=== PATIENT | female | born 1990 ===

== ENCOUNTER 2018-06-05 08:29 | Inpatient (IN) | payer OTHER ==
--- NOTE | 2018-06-05 08:52 | ED PDOC ---
Arrival/HPI - General Chief Complaint: Abdominal Pain Time Seen by Provider: 06/05/18 08:49 Historian: Patient - History of Present Illness Narrative History of Present Illness (Text): 06/05/18 08:5 27 year old female, whose PMH includes diverticulitis, who presents to the emergency department complaining of suprapubic abdominal pain described as cramping, since 3 days that has become worse. Patient associates this pain with nausea and states it is similar to her PMH symptoms of diverticulitis. Patient notes having controlled menstrual cycle, and usually gets spotting. Patient denies any vomiting, diarrhea, chest pain, shortness of breath, fever, vaginal discharge or bleeding, dysuria, hematuria, or other complaints. Time/Duration: < week Symptom Onset: Sudden Symptom Course: Worsening Quality: Cramping Context: Home Past Medical History - Provider Review Nursing Documentation Reviewed: Yes - Infectious Disease Hx of Infectious Diseases: None - Cardiac Hx Cardiac Disorders: No - Pulmonary Hx Respiratory Disorders: No - Neurological Hx Neurological Disorder: No - HEENT Hx HEENT Disorder: No - Renal Hx Renal Disorder: No - Endocrine/Metabolic Hx Endocrine Disorders: No - Hematological/Oncological Hx Blood Disorders: No - Integumentary Hx Dermatological Disorder: No - Musculoskeletal/Rheumatological Hx Musculoskeletal Disorders: No - Gastrointestinal Hx Diverticulitis: Yes - Genitourinary/Gynecological Hx Genitourinary Disorders: No - Psychiatric Hx Psychophysiologic Disorder: No Hx Substance Use: No - Surgical History Other/Comment: b/l lower leg fasciotomy Family/Social History - Physician Review Nursing Documentation Reviewed: Yes Family/Social History: No Known Family HX Smoking Status: Never Smoked Hx Alcohol Use: Yes Frequency of alcohol use: Socially Hx Substance Use: No Allergies/Home Meds Allergies/Adverse Reactions: Allergies No Known Allergies Allergy (Verified 06/05/18 08:42) Home Medications: Home Meds Medication Instructions Recorded Confirmed Etonogestrel [Nexplanon] 68 mg SUBD 06/05/18 Review of Systems - Physician Review All systems were reviewed & negative as marked: Yes - Review of Systems Constitutional: absent: Fevers Gastrointestinal: Abdominal Pain (suprapubic pain ), Nausea. absent: Diarrhea, Vomiting Genitourinary Female: absent: Vaginal Bleeding Physical Exam - Physical Exam Narrative Physical Exam (Text): 06/05/18 Constitutional: No acute distress. Head: Normocephalic. Atraumatic. Eyes: PERRL. ENT: Moist mucous membranes. Neck: Supple. Cardiovascular: Regular rate. Chest: No tenderness. Respiratory: Clear to auscultation bilaterally. GI: (+) suprapubic lower left quadrant tenderness. No rebound or guarding. Nondistended. Back: No CVA tenderness. Musculoskeletal: No tenderness or swelling of extremities. Skin: No rash. Neurologic: Alert, no focal deficit. Vital Signs Reviewed: Yes Vital Signs Temp Pulse Resp BP Pulse Ox 06/05/18 13:08 80 18 104/70 99 06/05/18 11:00 98.8 F 84 18 106/63 98 06/05/18 08:32 98.2 F 88 16 121/81 96 Temperature: Afebrile Blood Pressure: Normal Pulse: Regular Respiratory Rate: Normal Appearance: Positive for: Well-Appearing, Non-Toxic, Comfortable Pain Distress: None Mental Status: Positive for: Alert and Oriented X 3 - Systems Exam Skin: No: Rashes Medical Decision Making ED Course and Treatment: 06/05/18 Impression: 27 year old female with suprapubic lower left quadrant tenderness complaining of suprapubic abdominal cramping since 3 days. Plan: -- CT abdomen and pelvis -- Labs -- Zofran and Sodium Chloride -- Urinalysis -- Reassess and disposition Progress Notes: 06/05/18 11:48 CT abdomen and pelvis: Creator : Javier Horner MD FINDINGS: LOWER THORAX: Unremarkable. LIVER: Unremarkable. No gross lesion or ductal dilatation. GALLBLADDER AND BILE DUCTS: Unremarkable. PANCREAS: Unremarkable. No gross lesion or ductal dilatation. SPLEEN: Unremarkable. ADRENALS: Unremarkable. No mass. KIDNEYS AND URETERS: Unremarkable. No hydronephrosis. No solid mass. VASCULATURE: Unremarkable. No aortic aneurysm. BOWEL: There is diverticulitis involving the splenic flexure. Inflammatory changes are seen in the fat planes. There is a small pocket of extraluminal gas. There is diverticulosis with mural thickening in the descending and sigmoid colon. APPENDIX: Normal appendix. PERITONEUM: Unremarkable. No free fluid. No free air. LYMPH NODES: Unremarkable. No enlarged lymph nodes. BLADDER: Unremarkable. REPRODUCTIVE: Unremarkable. BONES: No acute fracture. OTHER FINDINGS: None. IMPRESSION: There is diverticulitis involving the splenic flexure. Inflammatory changes are seen in the fat planes. There is a small pocket of extraluminal gas. There is diverticulosis with mural thickening in the descending and sigmoid colon. Antibiotics initiated. Dr. Hardin accepts patient to hospitalist service. Abdomen remains soft without guarding or rebound. - Lab Interpretations Lab Results: 06/05/18 09:05 06/05/18 09:05 Lab Results 06/05/18 09:05: Sodium 139, Potassium 4.1, Chloride 103, Carbon Dioxide 26, Anion Gap 14, BUN 12, Creatinine 0.7, Est GFR ( Amer) > 60, Est GFR (Non- Af Amer) > 60, Random Glucose 100, Calcium 8.7, Total Bilirubin 1.3, AST 25, ALT 36, Alkaline Phosphatase 58, Total Protein 7.5, Albumin 4.4, Globulin 3.1, Albumin/Globulin Ratio 1.4, Lipase 45 06/05/18 09:05: WBC 11.8 H, RBC 4.19, Hgb 13.8, Hct 39.8, MCV 95.0, MCH 32.9, MCHC 34.7, RDW 12.4, Plt Count 204, MPV 10.2, Gran % 76.9 H, Lymph % (Auto) 14.4 L, [place] % (Auto) 7.9 H, Eos % (Auto) 0.6 L, Baso % (Auto) 0.2, Gran # 9.06 H, Lymph # (Auto) 1.7, [place] # (Auto) 0.9 H, Eos # (Auto) 0.1, Baso # (Auto) 0.02 06/05/18 09:04: Urine Color Yellow, Urine Appearance Clear, Urine pH 6.0, Ur Specific [place] 1.025, Urine Protein Trace H, Urine Glucose (UA) Negative, Urine Ketones Negative, Urine Blood Negative, Urine Nitrate Negative, Urine Bilirubin Negative, Urine Urobilinogen 0.2, Ur Leukocyte Esterase Negative, Urine RBC 0 - 2, Urine WBC 1 - 3, Ur Epithelial Cells 6 - 8, Urine Bacteria Many , Urine Other Uyeast, Urine HCG, Qual Negative I have reviewed the lab results: Yes - RAD Interpretation Radiology Orders: 06/05/18 09:17 ABD PELVIS PO & IV CONTRAST [CT] Stat Transportation Refrigeration Technician: Radiologist - Medication Orders Current Medication Orders: Sodium Chloride (Sodium Chloride 0.9%) 100 mls @ 150 mls/hr IV .Q40M JUVE Piperacillin Sod/Tazobactam Sod (Zosyn 3.375 In Ns 100ml) 100 mls @ 200 mls/hr IVPB Q6 JUVE PRN Reason: Protocol Stop: 06/06/18 00:29 Morphine Sulfate (Morphine) 1 mg IVP Q6 PRN PRN Reason: Pain, moderate (4-7) Ondansetron HCl (Zofran Inj) 4 mg IVP Q6H PRN PRN Reason: Nausea/Vomiting Pantoprazole Sodium (Protonix Ec Tab) 40 mg PO 0600 JUVE Discontinued Medications Sodium Chloride (Sodium Chloride 0.9%) 1,000 mls @ 999 mls/hr IV .Q1H1M STA Stop: 06/05/18 10:17 Last Admin: 06/05/18 09:22 Dose: 999 mls/hr eMAR Start Stop Document 06/05/18 09:22 LM (Rec: 06/05/18 09:22 LM [id number]) Intravenous Solution Start Date 06/05/18 Start Time 09:22 End Date 06/05/18 End time 10:23 Total Infusion Time 61 Ciprofloxacin (Cipro 400mg/200ml Dsw) 400 mg in 200 mls @ 133.3 mls/hr IVPB STAT STA PRN Reason: Protocol Stop: 06/05/18 13:19 Metronidazole (Flagyl) 500 mg in 100 mls @ 100 mls/hr IVPB STAT STA PRN Reason: Protocol Stop: 06/05/18 12:48 Last Admin: 06/05/18 12:18 Dose: 100 mls/hr eMAR Start Stop Document 06/05/18 12:18 [facility] (Rec: 06/05/18 12:18 LM [id number]) Intravenous Solution Start Date 06/05/18 Start Time 12:18 End Date 06/05/18 End time 13:20 Total Infusion Time 62 Morphine Sulfate (Morphine) 1 mg IVP PRN PRN PRN Reason: Pain, moderate (4-7) Ondansetron HCl (Zofran Inj) 8 mg IVP STAT STA Stop: 06/05/18 09:18 Last Admin: 06/05/18 09:23 Dose: 8 mg IVP Administration Document 06/05/18 09:23 LM (Rec: 06/05/18 09:23 [facility] [id number]) Charges for Administration # of IVP Administrations 1 Pneumococcal Polyvalent Vaccine (Pneumovax 23 Vaccine) 0.5 ml IM .ONCE ONE Stop: 06/05/18 15:34 - Scribe Statement The provider has reviewed the documentation as recorded by the Scribe Maricruz Garay Provider Scribe Attestation: All medical record entries made by the Scribe were at my direction and personally dictated by me. I have reviewed the chart and agree that the record accurately reflects my personal performance of the history, physical exam, medical decision making, and the department course for this patient. I have also personally directed, reviewed, and agree with the discharge instructions and disposition. Disposition/Present on Arrival - Present on Arrival Any Indicators Present on Arrival: No History of DVT/PE: No History of Uncontrolled Diabetes: No Urinary Catheter: No History of Decub. Ulcer: No History Surgical Site Infection Following: None - Disposition Have Diagnosis and Disposition been Completed?: Yes Diagnosis: Acute diverticulitis Disposition: HOME/ ROUTINE Disposition Time: 11:50 Patient Plan: Discharge Condition: STABLE
[2018-06-05 09:10] LABS: BASO # 0.02 K/mm3 (0.0-2.0); BASO % 0.2 % (0.0-3.0); EOS # 0.1 (0.0-0.7); EOS % 0.6 % (1.5-5.0); GRAN # 9.06 (1.4-6.5); GRAN % 76.9 % (50.0-68.0); HEMOGLOBIN 13.8 g/dL (12.0-16.0); LYMPH # 1.7 (1.2-3.4); LYMPH % 14.4 % (22.0-35.0); MEAN CORPUSCULAR HEMOGLOBIN 32.9 pg (25.0-35.0); MEAN CORPUSCULAR HGB CONC 34.7 g/dl (31.0-37.0); MEAN PLATELET VOLUME 10.2 fl (7.0-11.0); MONO # 0.9 (0.1-0.6); MONO % 7.9 % (1.0-6.0); RBC 4.19 10^6/uL (3.5-6.1); RED CELL DISTRIBUTION WIDTH 12.4 % (11.5-14.5); WHITE BLOOD COUNT 11.8 10^3/ul (4.5-11.0)
[2018-06-05 09:10] LABS: URINE BILIRUBIN NEGATIVE (NEGATIVE); URINE BLOOD NEGATIVE (NEGATIVE); URINE GLUCOSE (UA) NEGATIVE (NEGATIVE); URINE LEUKOCYTE ESTERASE NEGATIVE Leu/uL (NEGATIVE); URINE PROTEIN TRACE mg/dL (<30 mg/dL); URINE UROBILINOGEN 0.2 E.U./dL (<1 E.U./dL)
[2018-06-05 09:11] LABS: URINE APPEARANCE CLEAR (CLEAR); URINE COLOR YELLOW (YELLOW)
[2018-06-05 09:15] LABS: HCG,QUALITATIVE URINE NEGATIVE (NEGATIVE)
[2018-06-05] MEDS ORDERED: Sodium Chloride 0.9% 1,000 ML IV STA (09:17)
[2018-06-05 09:20] LABS: URINE BACTERIA MANY (NEG); URINE RBC 0 - 2 /hpf (0-2)
[2018-06-05 09:20] LABS: ALB/GLOB RATIO 1.4 (1.1-1.8); ALBUMIN 4.4 g/dL (3.0-4.8); ALT/SGPT 36 U/L (7-56); AST/SGOT 25 U/L (14-36); BLOOD UREA NITROGEN 12 mg/dL (7-21); CALCIUM 8.7 mg/dL (8.4-10.5); GFR AFRICAN-AMERICAN > 60; GFR NON-AFRICAN AMERICAN > 60; LIPASE 45 U/L (23-300)
[2018-06-05] MEDS ORDERED: Iohexol 240 (50 ml) ONE (09:24)
[2018-06-05] MEDS ORDERED: Iohexol 350 MG/100 ML VIAL ONE (10:43)
--- NOTE | 2018-06-05 11:46 | CT ---
Date of service: 06/05/2018 PROCEDURE: CT Abdomen and Pelvis with contrast HISTORY: LLQ pain COMPARISON: None. TECHNIQUE: Contrast dose: 100 cc of Omni 350 Radiation dose: Total exam DLP = 1053 mGy-cm. This CT exam was performed using one or more of the following dose reduction techniques: Automated exposure control, adjustment of the mA and/or kV according to patient size, and/or use of iterative reconstruction technique. FINDINGS: LOWER THORAX: Unremarkable. LIVER: Unremarkable. No gross lesion or ductal dilatation. GALLBLADDER AND BILE DUCTS: Unremarkable. PANCREAS: Unremarkable. No gross lesion or ductal dilatation. SPLEEN: Unremarkable. ADRENALS: Unremarkable. No mass. KIDNEYS AND URETERS: Unremarkable. No hydronephrosis. No solid mass. VASCULATURE: Unremarkable. No aortic aneurysm. BOWEL: There is diverticulitis involving the splenic flexure. Inflammatory changes are seen in the fat planes. There is a small pocket of extraluminal gas. There is diverticulosis with mural thickening in the descending and sigmoid colon. APPENDIX: Normal appendix. PERITONEUM: Unremarkable. No free fluid. No free air. LYMPH NODES: Unremarkable. No enlarged lymph nodes. BLADDER: Unremarkable. REPRODUCTIVE: Unremarkable. BONES: No acute fracture. OTHER FINDINGS: None. IMPRESSION: There is diverticulitis involving the splenic flexure. Inflammatory changes are seen in the fat planes. There is a small pocket of extraluminal gas. There is diverticulosis with mural thickening in the descending and sigmoid colon.
[2018-06-05] MEDS ORDERED: Ciprofloxacin 400mg/200ml D5W 400 MG/200 ML BAG IVPB STA (11:49)
[2018-06-05] MEDS ORDERED: metroNIDAZOLE IV 500 mg/100 ml 500 MG/100 ML BAG IVPB STA (11:49)
[2018-06-05] MEDS ORDERED: Morphine 2 mg/ml ISec IVP PRN (13:43)
[2018-06-05] MEDS ORDERED: Sodium Chloride 0.9% 100 ML IV SCH (14:00)
--- NOTE | 2018-06-05 14:28 | CP.PCM.HP ---
Addendum entered and electronically signed by Bro Salinas DO 06/06/18 08:47: HPI: Patient was adopted at so family history was unobtainable. Original Note: <Bro Salinas - Last Filed: 06/05/18 14:35> History of Present Illness - History of Present Illness History of Present Illness: Bro Salinas, PGY-1 History and Physical for Hospitalist Service CC: Abdominal Pain HPI: Ms. Porter is a 27 year old F with a PMHx of diverticulitis who presented with abdominal pain for three days. Patient describes the pain as a 5/10, constant dull pain with intermittent sharp stabbing pains. Patient points to her stomach and left lower abdomen. Patient relates a history of diverticulitis first diagnosed in February of 2013 at [facility] in [facility]. CT at that time showed colonic diverticulosis most severely affecting the sigmoid and descending colon and acute diverticulitis without abscess formation. Follow up colonoscopy showed mild diverticulosis in the sigmoid, transverse and cecum. Patient also admits to two occasions of nonbloody diarrhea today and mild nausea. Patient denies CP, SOB, palpitations, change in frequency or dysuria, fevers, chills, weight loss. PMHx: Diverticulitis PSHx: bilateral lower leg fasciotomy Allergies: NKDA Social: denies tobacco and IVDU, currently without insurance Meds: Probiotic and Metamucil Pharm: none PMD: Dr. Garcia ([facility]) in the past CT Abd 06/05: Diverticulitis in splenic flexure with small extraluminal gas. Diverticulosis with mural thickening in descending and sigmoid colon Present on Admission - Present on Admission Any Indicators Present on Admission: No History of DVT/PE: No Review of Systems - Review of Systems All systems: reviewed and no additional remarkable complaints except (as listed in HPI.) Review of Systems: 12 point review of systems completed and negative except as described in HPI. Past Patient History - Infectious Disease Hx of Infectious Diseases: None - Past Social History Smoking Status: Never Smoked - CARDIAC Hx Cardiac Disorders: No - PULMONARY Hx Respiratory Disorders: No - NEUROLOGICAL Hx Neurological Disorder: No - HEENT Hx HEENT Problems: No - RENAL Hx Chronic Kidney Disease: No - ENDOCRINE/METABOLIC Hx Endocrine Disorders: No - HEMATOLOGICAL/ONCOLOGICAL Hx Blood Disorders: No - INTEGUMENTARY Hx Dermatological Problems: No - MUSCULOSKELETAL/RHEUMATOLOGICAL Hx Musculoskeletal Disorders: No - GASTROINTESTINAL Hx Diverticulitis: Yes - GENITOURINARY/GYNECOLOGICAL Hx Genitourinary Disorders: No - PSYCHIATRIC Hx Psychophysiologic Disorder: No Hx Substance Use: No - SURGICAL HISTORY Other/Comment: b/l lower leg fasciotomy Meds Allergies/Adverse Reactions: Allergies Allergy/AdvReac Type Severity Reaction Status Date / Time No Known Allergies Allergy Verified 06/05/18 08:42 Physical Exam - Constitutional Appears: Well, No Acute Distress - Head Exam Head Exam: ATRAUMATIC, NORMAL INSPECTION, NORMOCEPHALIC - Eye Exam Eye Exam: EOMI, Normal appearance, PERRL Pupil Exam: NORMAL ACCOMODATION - ENT Exam ENT Exam: Mucous Membranes Moist, Normal Exam - Neck Exam Neck exam: Positive for: Normal Inspection. Negative for: Lymphadenopathy, Tenderness - Respiratory Exam Respiratory Exam: Clear to Auscultation Bilateral, NORMAL BREATHING PATTERN. absent: Chest Wall Tenderness, Wheezes, Respiratory Distress - Cardiovascular Exam Cardiovascular Exam: RRR, +S1, +S2 - GI/Abdominal Exam GI & Abdominal Exam: Soft, Tenderness. absent: Distended, Guarding, Mass, Pulsatile Mass, Rebound - Neurological Exam Neurological exam: Alert, CN II-XII Intact, Oriented x3 - Psychiatric Exam Psychiatric exam: Normal Affect, Normal Mood - Skin Skin Exam: Dry, Intact, Normal Color, Warm Results - Vital Signs Recent Vital Signs: Last Vital Signs Temp 98.6 F 06/05/18 13:18 Pulse 80 06/05/18 13:18 Resp 18 06/05/18 13:18 BP 104/70 06/05/18 13:18 Pulse Ox 98 06/05/18 13:18 - Labs Result Diagrams: 06/05/18 09:05 06/05/18 09:05 Assessment & Plan - Assessment and Plan (Free Text) Assessment: Ms. Porter is a 27 year old F with a PMHx of acute diverticulitis who presents with abdominal pain likely 2/2 recurrent diverticulitis. Recurrent Diverticulitis - Afebrile, mild leukocytosis (11.8) - CT from 5 years ago showed diverticulitis of mid descending colon without evidence of abscess formation - CT today showed diverticulitis in splenic flexure with small pocket of extraluminal gas. - GI consulted regarding recurrence. Appreciate recommendations - Surgery consulted regarding extraluminal gas evaluation. Appreciate recommendations - NPO and on IVF NS @150 cc/hr - Received Metro 500 mg and Cipro 400 mg in ED. Currently on Metronidazole 500 mg q8 and Rocephin 1 gm daily - UA negative for ascending infection - Zofran 4 mg IVP q6 PRN for nausea - test negative Pain Control - Morphine 1 mg IVP q[address] GI/DVT PPx Protonix 40 SCD's- will reevaluate once surgery provides recommendations Patient seen, case reviewed, and plan agreed upon with Dr. Cathi De La Cruz. Bro Bernardopaulette PGY-1 <Susan De La Cruz - Last Filed: 06/05/18 17:55> Results - Vital Signs Recent Vital Signs: Last Vital Signs Temp 98.8 F 06/05/18 15:13 Pulse 80 06/05/18 15:13 Resp 18 06/05/18 15:13 BP 104/70 06/05/18 15:13 Pulse Ox 98 06/05/18 13:18 - Labs Result Diagrams: 06/05/18 09:05 06/05/18 09:05 Attending/Attestation - Attestation I have personally seen and examined this patient.: Yes I have fully participated in the care of the patient.: Yes I have reviewed all pertinent clinical information: Yes Notes (Text): 06/05/18 17:43 27 year old female with past medical history of diverticulitis who presents with complaint of abdominal pain. CT abd/pelvis was done which showed diverticulitis in splenic flexure with small pocket of extraluminal gas. Mild leukocytosis 11.8. Continue with NPO, iv fluids, analgesics and antibiotics. Serial abdominal exams. Surgery and GI evaluation is requested. Susan De La Cruz MD Hospitalist.
--- NOTE | 2018-06-05 15:09 | CP.PCM.CON ---
History of Present Illness - History of Present Illness History of Present Illness: GENERAL SURGERY CONSULT NOTE FOR DR. FALCON 27 y/o F with pmhx of previous diverticulosis admitted to hospital for abdominal pain. She has been experiencing the pain for the past three days that had started in her suprapubic region and has moved to her left lower quadrant that she describes as "coming in waves" that was initially a 9/10 severity that was relieved with pain medication. She had initially thought she was having menstrual cramps but decided to come to ER after pain hadn't subsided. She had previously had a similar episode of abdominal pain about 5 years ago when she was diagnosed with diverticulitis at [place] in [facility]. Per patient, folow up colonoscopy only showed diverticulosis. She has been taking metamucil and probiotic since her last colonoscopy. She reports having a bowel movement today with nonbloody diarrhea. She complains of some nausea but denies fevers, chills , hematochezia, diarrhea, chest pain, shortness of breath or flank pain. surghx: b/l lower leg fasciotomy, nexplanon placement pmhx: diverticulitis, diverticulosis, ~10 yrs ago famhx: adopted-no family history all: NKDA social: marijuana ~3x/week, no smoking, social drinker Review of Systems - Review of Systems All systems: reviewed and no additional remarkable complaints except (as per HPI ) Past Patient History - Infectious Disease Hx of Infectious Diseases: None - Past Medical History & Family History Past Medical History?: No Pertinent Family History: Pt adopted. Unable to obtain - Past Social History Smoking Status: Never Smoked Alcohol: Social Drugs: Cannabis (smokes 3x/week) - CARDIAC Hx Cardiac Disorders: No - PULMONARY Hx Respiratory Disorders: No - NEUROLOGICAL Hx Neurological Disorder: No - HEENT Hx HEENT Problems: No - RENAL Hx Chronic Kidney Disease: No - ENDOCRINE/METABOLIC Hx Endocrine Disorders: No - HEMATOLOGICAL/ONCOLOGICAL Hx Blood Disorders: No - INTEGUMENTARY Hx Dermatological Problems: No - MUSCULOSKELETAL/RHEUMATOLOGICAL Hx Musculoskeletal Disorders: No - GASTROINTESTINAL Hx Diverticulitis: Yes - GENITOURINARY/GYNECOLOGICAL Hx Genitourinary Disorders: No - PSYCHIATRIC Hx Psychophysiologic Disorder: No Hx Substance Use: No - SURGICAL HISTORY Other/Comment: b/l lower leg fasciotomy Meds Allergies/Adverse Reactions: Allergies Allergy/AdvReac Type Severity Reaction Status Date / Time No Known Allergies Allergy Verified 06/05/18 08:42 - Medications Medications: Current Medications Metronidazole (Flagyl) 500 mg in 100 mls @ 100 mls/hr IVPB Q8 [facility] PRN Reason: Protocol Ceftriaxone Sodium (Rocephin 1 Gram Ivpb) 1 gm in 100 mls @ 100 mls/hr IVPB DAILY [facility] PRN Reason: Protocol Sodium Chloride (Sodium Chloride 0.9%) 100 mls @ 150 mls/hr IV .Q40M [facility] Morphine Sulfate (Morphine) 1 mg IVP Q6 PRN PRN Reason: Pain, moderate (4-7) Ondansetron HCl (Zofran Inj) 4 mg IVP Q6H PRN PRN Reason: Nausea/Vomiting Pantoprazole Sodium (Protonix Ec Tab) 40 mg PO 0600 [facility] Physical Exam - Constitutional Appears: Well, Non-toxic, No Acute Distress - Head Exam Head Exam: NORMAL INSPECTION - Eye Exam Eye Exam: Normal appearance - Respiratory Exam Respiratory Exam: NORMAL BREATHING PATTERN - Cardiovascular Exam Cardiovascular Exam: REGULAR RHYTHM - GI/Abdominal Exam GI & Abdominal Exam: Hypoactive Bowel Sounds, Soft, Tenderness (moderate pain to palpation of suprapubic and b/l lower quadrants. Mild pain to palpation LUQ) . absent: Distended, Guarding, Rebound, Rigid - Rectal Exam Rectal Exam: NORMAL INSPECTION. absent: Bloody Stool Additional comments: Sphincter tone intact. no masses palpated - Extremities Exam Extremities exam: Positive for: pedal pulses present. Negative for: calf tenderness, pedal edema - Back Exam Back exam: absent: CVA tenderness (L), CVA tenderness (R) - Neurological Exam Neurological exam: Alert, Oriented x3 - Psychiatric Exam Psychiatric exam: Normal Affect, Normal Mood - Skin Skin Exam: Dry, Intact, Normal Color, Warm Results - Vital Signs Recent Vital Signs: Last Vital Signs Temp 98.6 F 06/05/18 13:18 Pulse 80 06/05/18 13:18 Resp 18 06/05/18 13:18 BP 104/70 06/05/18 13:18 Pulse Ox 98 06/05/18 13:18 - Labs Result Diagrams: 06/05/18 09:05 06/05/18 09:05 Assessment & Plan - Assessment and Plan (Free Text) Assessment: 27 y/o F with recurrent diverticulitis involving splenic flexure with microperforation Plan: - No emergent surgical intervention at this time - Will continue to follow pt during hospital course - PT NPO, daily serial abdominal exams - f/u GI recs - monitor cbc/bmp - Continue abx per ID recs - Continue IV fluids - Continue incentive spirometry - Encourage ambulation as tolerated - Continue DVT ppx - Discussed with Dr. Wilfred Paiz PGY1 - Date & Time Date: 06/05/18 Time: 15:22
[2018-06-05 15:33] VITALS: BMI 41.1
[2018-06-05] MEDS ORDERED: Pneumococcal 23-Valent Vaccine IM ONE (15:33)
[2018-06-05] MEDS: Morphine 2 mg/ml ISec IVP PRN (16:32)
[2018-06-05] MEDS: Piperacillin/Tazobact 3.375 gm 100 ML IVPB SCH (17:52)
[2018-06-05] MEDS: Lactated Ringer's 1,000 ML IV SCH (17:58)
[2018-06-05] MEDS ORDERED: metroNIDAZOLE IV 500 mg/100 ml 500 MG/100 ML BAG IVPB SCH (21:00)
[2018-06-05] MEDS ORDERED: cefTRIAXone 1 gm 1 GM/100 ML BAG IVPB SCH (23:00)
[2018-06-06] MEDS: Lactated Ringer's 1,000 ML IV SCH ×2 (00:48→23:01)
[2018-06-06] MEDS: Piperacillin/Tazobact 3.375 gm 100 ML IVPB SCH ×5 (00:48→23:30)
[2018-06-06] MEDS: Pantoprazole 40 mg EC Tab PO SCH (05:53)
[2018-06-06] MEDS ORDERED: metroNIDAZOLE IV 500 mg/100 ml 500 MG/100 ML BAG IVPB SCH (06:15)
[2018-06-06 06:58] LABS: BASO # 0.02 K/mm3 (0.0-2.0); BASO % 0.2 % (0.0-3.0); EOS # 0.1 (0.0-0.7); EOS % 0.5 % (1.5-5.0); GRAN # 7.71 (1.4-6.5); GRAN % 73.9 % (50.0-68.0); HEMOGLOBIN 13.1 g/dL (12.0-16.0); LYMPH # 1.8 (1.2-3.4); LYMPH % 17.4 % (22.0-35.0); MEAN CELL VOLUME 95.3 fl (80.0-105.0); MEAN CORPUSCULAR HEMOGLOBIN 32.4 pg (25.0-35.0); MEAN PLATELET VOLUME 10.2 fl (7.0-11.0); MONO # 0.8 (0.1-0.6); RBC 4.04 10^6/uL (3.5-6.1); RED CELL DISTRIBUTION WIDTH 12.3 % (11.5-14.5); WHITE BLOOD COUNT 10.4 10^3/ul (4.5-11.0)
[2018-06-06 07:23] LABS: ALB/GLOB RATIO 1.3 (1.1-1.8); ALT/SGPT 35 U/L (7-56); AST/SGOT 25 U/L (14-36); BLOOD UREA NITROGEN 8 mg/dL (7-21); CALCIUM 8.8 mg/dL (8.4-10.5); GFR AFRICAN-AMERICAN > 60; GFR NON-AFRICAN AMERICAN > 60
--- NOTE | 2018-06-06 08:20 | CP.PCM.PN ---
<Bro Salinas - Last Filed: 06/06/18 15:22> Subjective - Date & Time of Evaluation Date of Evaluation: 06/06/18 Time of Evaluation: 06:20 - Subjective Subjective: Bro Salinas, PGY-1 Progress Note for the Hospitalist Service Patient seen at bedside. States she continues to have upper epigastric and left lower quadrant pain at a 3/10. Her pain worsens to 8/10 in the left lower quadrant when she rotates. No current nausea, vomiting. She had a bowel movement this morning and states it was watery. No blood in stool. At 0730 the patient started to experience mild 3/10 chest pressure on the right and left side of her chest. No SOB, nausea, numbness, tingling, or diaphoresis. The pain does not radiate. Does not feel anxious. Unknown family history of heart disease because she is adopted. No other new acute concerns at this time. Objective - Vital Signs/Intake and Output Vital Signs (last 24 hours): Temp Pulse Resp BP Pulse Ox 98 F 77 20 108/65 97 06/06/18 06:00 06/06/18 06:00 06/06/18 06:00 06/06/18 06:00 06/06/18 06:00 - Medications Medications: Current Medications Enoxaparin Sodium (Lovenox) 40 mg SC DAILY [facility] PRN Reason: Protocol Lactated Ringer's (Lactated Ringer's) 1,000 mls @ 150 mls/hr IV .Q6H40M [facility] Last Admin: 06/06/18 00:48 Dose: Not Given Piperacillin Sod/Tazobactam Sod (Zosyn 3.375 In Ns 100ml) 100 mls @ 200 mls/hr IVPB Q6H [facility] PRN Reason: Protocol Stop: 06/06/18 12:59 Last Admin: 06/06/18 07:47 Dose: 200 mls/hr Morphine Sulfate (Morphine) 1 mg IVP Q6 PRN PRN Reason: Pain, moderate (4-7) Last Admin: 06/05/18 16:32 Dose: 1 mg Ondansetron HCl (Zofran Inj) 4 mg IVP Q6H PRN PRN Reason: Nausea/Vomiting Pantoprazole Sodium (Protonix Ec Tab) 40 mg PO 0600 [facility] Last Admin: 06/06/18 05:53 Dose: 40 mg - Labs Labs: 06/06/18 06:00 06/06/18 06:00 - Constitutional Appears: Well, No Acute Distress - Head Exam Head Exam: ATRAUMATIC, NORMOCEPHALIC - Eye Exam Eye Exam: EOMI, Normal appearance Pupil Exam: NORMAL ACCOMODATION - ENT Exam ENT Exam: Mucous Membranes Moist, Normal Exam - Neck Exam Neck Exam: Normal Inspection - Respiratory Exam Respiratory Exam: Clear to Ausculation Bilateral, NORMAL BREATHING PATTERN - Cardiovascular Exam Cardiovascular Exam: RRR, +S1, +S2 - GI/Abdominal Exam GI & Abdominal Exam: Soft, Tenderness, Hyperactive Bowel Sounds. absent: Mass, Rebound Additional comments: belly ring in place. Tenderness in epigastric and LLQ areas - Extremities Exam Extremities Exam: Full ROM - Neurological Exam Neurological Exam: Alert, Awake, Oriented x3 - Psychiatric Exam Psychiatric exam: Normal Affect, Normal Mood - Skin Skin Exam: Dry, Intact, Normal Color, Warm Assessment and Plan - Assessment and Plan (Free Text) Assessment: Ms. Porter is a 27 year old Female who came in to the hospital for abdominal pain secondary to recurrent diverticulitis. CT abdomen was significant for a pocket of extraluminal gas. Recurrent Diverticulitis - Afebrile, leukocytosis improved from 11.8 to 10.4 - CT from 5 years ago showed diverticulitis of mid descending colon without evidence of abscess formation - CT abdomen yesterday showed diverticulitis in splenic flexure with small pocket of extraluminal gas. - Surgery consulted. No surgery recommended at this time. Switched Metronidazole 500 mg q8 and Rocephin 1 gm daily to Zosyn 3.375 Q6H. Currently day 2 of Zosyn. - NPO and on IVF LR @150 cc/hr. -GI consulted. Dr. Webb recommends keeping patient NPO for one more day due to microperforations. Will reassess patient tomorrow and may advance diet. - UA negative for ascending infection - Zofran 4 mg IVP q6 PRN for nausea - test negative Diarrhea - Multiple watery Bowel movements reported over past 2 days - negative FOBT - f/u stool culture and c. diff toxin Chest Pain - Patient reported 3/10 chest pain, Stat ECG and troponins ordered. Negative Trop x2 - ECG showed normal sinus rhythm with sinus arrythmia - Will monitor symptoms closely Pain Control - Morphine 1 mg IVP q[address] GI/DVT PPx - Protonix 40 - SCD's Patient seen, case reviewed, and plan agreed upon with Dr. Cathi De La Cruz. Bro Salinas, PGY-1 <Susan De La Cruz - Last Filed: 06/06/18 16:42> Objective - Vital Signs/Intake and Output Vital Signs (last 24 hours): Temp Pulse Resp BP Pulse Ox 98 F 76 20 114/66 98 06/06/18 14:00 06/06/18 14:00 06/06/18 14:00 06/06/18 14:00 06/06/18 14:00 - Medications Medications: Current Medications Acetaminophen (Tylenol 325mg Tab) 650 mg PO Q6H PRN PRN Reason: Other Last Admin: 06/06/18 15:09 Dose: 650 mg Enoxaparin Sodium (Lovenox) 40 mg SC DAILY [facility] PRN Reason: Protocol Last Admin: 06/06/18 10:19 Dose: 40 mg Lactated Ringer's (Lactated Ringer's) 1,000 mls @ 150 mls/hr IV .Q6H40M [facility] Last Admin: 06/06/18 00:48 Dose: Not Given Piperacillin Sod/Tazobactam Sod (Zosyn 3.375 In Ns 100ml) 100 mls @ 200 mls/hr IVPB Q6H [facility] PRN Reason: Protocol Stop: 06/13/18 06:31 Last Admin: 06/06/18 12:09 Dose: 200 mls/hr Morphine Sulfate (Morphine) 1 mg IVP Q6 PRN PRN Reason: Pain, moderate (4-7) Last Admin: 06/06/18 12:14 Dose: 1 mg Ondansetron HCl (Zofran Inj) 4 mg IVP Q6H PRN PRN Reason: Nausea/Vomiting Pantoprazole Sodium (Protonix Ec Tab) 40 mg PO 0600 [facility] Last Admin: 06/06/18 05:53 Dose: 40 mg - Labs Labs: 06/06/18 06:00 06/06/18 06:00 Attending/Attestation - Attestation I have personally seen and examined this patient.: Yes I have fully participated in the care of the patient.: Yes I have reviewed all pertinent clinical information, including history, physical exam and plan: Yes Notes (Text): 06/06/18 16:38 27 year old female with past medical history of diverticulitis who presented with complaint of abdominal pain. CT abd/pelvis showed diverticulitis in splenic flexure with small pocket of extraluminal gas. GI and surgery evaluation were appreciated. Continue with IVF, analgesics and antibiotics. Continue with NPO with possible advancement of diet to clear liquid if patient is stable. Serial cardiac enzymes were ordered for complaint of chest pain. EKG was reviewed. CDif study is ordered as patient is complaining of diarrhea. Leukocytosis has resolved. Susan De La Cruz MD Hospitalist.
--- NOTE | 2018-06-06 10:17 | CARD ---
APPROVED REPORT Date of service: 06/06/2018 EKG Measurement Heart [id number] MD [id number] <Conclusion> Normal sinus rhythm with sinus arrhythmia Normal ECG
[2018-06-06] MEDS: Enoxaparin 40 mg Syringe SC SCH (10:19)
[2018-06-06] MEDS ORDERED: cefTRIAXone 1 gm 1 GM/100 ML BAG IVPB SCH (11:00)
--- NOTE | 2018-06-06 11:26 | CP.PCM.PN ---
<Mandy Parks - Last Filed: 06/06/18 16:59> Subjective - Date & Time of Evaluation Date of Evaluation: 06/06/18 Time of Evaluation: 07:10 - Subjective Subjective: Patient seen and examined this AM. No acute evnts overnight. Patient continues to have clear diarrhea 5x yesterday but no nausea or vomiting. Abdominal pain is persistent but controlled. No fevers or chills Objective - Vital Signs/Intake and Output Vital Signs (last 24 hours): Temp Pulse Resp BP Pulse Ox 98 F 77 20 108/65 97 06/06/18 06:00 06/06/18 06:00 06/06/18 06:00 06/06/18 06:00 06/06/18 06:00 - Medications Medications: Current Medications Enoxaparin Sodium (Lovenox) 40 mg SC DAILY [facility] PRN Reason: Protocol Last Admin: 06/06/18 10:19 Dose: 40 mg Lactated Ringer's (Lactated Ringer's) 1,000 mls @ 150 mls/hr IV .Q6H40M [facility] Last Admin: 06/06/18 00:48 Dose: Not Given Piperacillin Sod/Tazobactam Sod (Zosyn 3.375 In Ns 100ml) 100 mls @ 200 mls/hr IVPB Q6H [facility] PRN Reason: Protocol Stop: 06/13/18 06:31 Last Admin: 06/06/18 07:47 Dose: 200 mls/hr Morphine Sulfate (Morphine) 1 mg IVP Q6 PRN PRN Reason: Pain, moderate (4-7) Last Admin: 06/05/18 16:32 Dose: 1 mg Ondansetron HCl (Zofran Inj) 4 mg IVP Q6H PRN PRN Reason: Nausea/Vomiting Pantoprazole Sodium (Protonix Ec Tab) 40 mg PO 0600 [facility] Last Admin: 06/06/18 05:53 Dose: 40 mg - Labs Labs: 06/06/18 06:00 06/06/18 06:00 - Constitutional Appears: Well, Non-toxic, No Acute Distress - Head Exam Head Exam: ATRAUMATIC, NORMOCEPHALIC - Eye Exam Eye Exam: Normal appearance. absent: Conjunctival injection, Scleral icterus - ENT Exam ENT Exam: Mucous Membranes Moist, Normal Oropharynx - Respiratory Exam Respiratory Exam: NORMAL BREATHING PATTERN. absent: Accessory Muscle Use, Respiratory Distress - Cardiovascular Exam Cardiovascular Exam: RRR - GI/Abdominal Exam GI & Abdominal Exam: Soft, Tenderness (Moderate tenderness in the LLQ and the LUQ and the suprapubis to deep palpation). absent: Distended - Extremities Exam Extremities Exam: absent: Calf Tenderness, Pedal Edema, Tenderness - Neurological Exam Neurological Exam: Alert, Awake, Oriented x3 - Psychiatric Exam Psychiatric exam: Normal Affect, Normal Mood - Skin Skin Exam: Dry, Intact, Normal Color, Warm Assessment and Plan - Assessment and Plan (Free Text) Assessment: 27F with recurrent diverticulitis Plan: Continue conservative management with close monitoring, vitals, labs, and physical exam Follow up GI recs. Per Dr. Webb, he recommends NPO until tomorrow given microperforation. Advance diet per his recs Continue IV Zosyn PRN pain and nausea medication IVF Recommend colonoscopy and high fiber diet as an outpatient after recovery from acute diverticulitis, as well as weight loss and close GI follow up. Will continue to monitor. Will discuss with Dr. Hardin, further recommendations per him Mandy Parks, PGY2 <Michele Hardin - Last Filed: 06/07/18 12:46> Objective - Vital Signs/Intake and Output Vital Signs (last 24 hours): Temp Pulse Resp BP Pulse Ox 98.3 F 65 20 100/58 L 97 06/07/18 08:39 06/07/18 08:39 06/07/18 08:39 06/07/18 08:39 06/07/18 08:39 Intake and Output: 06/07/18 06/07/18 06:59 18:59 Intake Total 3600 Balance 3600 - Medications Medications: Current Medications Acetaminophen (Tylenol 325mg Tab) 650 mg PO Q6H PRN PRN Reason: Other Last Admin: 06/06/18 15:09 Dose: 650 mg Enoxaparin Sodium (Lovenox) 40 mg SC DAILY [facility] PRN Reason: Protocol Last Admin: 06/07/18 09:49 Dose: 40 mg Piperacillin Sod/Tazobactam Sod (Zosyn 3.375 In Ns 100ml) 100 mls @ 200 mls/hr IVPB Q6H [facility] PRN Reason: Protocol Stop: 06/13/18 06:31 Last Admin: 06/07/18 12:13 Dose: 200 mls/hr Potassium Chloride 20 meq/ (Dextrose/Sodium Chloride) 1,010 mls @ 150 mls/hr IV .Q6H44M [facility] Last Admin: 06/07/18 09:59 Dose: 150 mls/hr Morphine Sulfate (Morphine) 1 mg IVP Q6 PRN PRN Reason: Pain, severe (8-10) Ondansetron HCl (Zofran Inj) 4 mg IVP Q6H PRN PRN Reason: Nausea/Vomiting Oxycodone/Acetaminophen (Percocet 5/325 Mg Tab) 1 tab PO Q4H PRN PRN Reason: Pain, moderate (4-7) Stop: 06/10/18 09:09 Pantoprazole Sodium (Protonix Ec Tab) 40 mg PO 0600 [facility] Last Admin: 06/07/18 05:37 Dose: 40 mg - Labs Labs: 06/07/18 06:30 06/07/18 06:30 Assessment and Plan - Assessment and Plan (Free Text) Plan: Agree with above. IV abx 3-5 days until WBC normalizes and clinical improvement of tenderness on exam. Consider repeat CT if no improvement and IR guided drainage of any potential collections. Goal to prevent needing surgical intervention in this morbidly obese young patient. She needs aggressive lifestyle and diet modification to prevent further attacks and possible need for surgery at such a young age. Weight loss counseling, increase cardiovascular exercise, low-carb low fat diet, bowel regimen consisting of fiber supplementation, stool softeners, increased daily water intake.
[2018-06-06] MEDS: Morphine 2 mg/ml ISec IVP PRN ×2 (12:14→23:18)
--- NOTE | 2018-06-06 13:29 | CON ---
DATE: 06/06/2018 REQUESTING PHYSICIAN: Dr. De La Cruz. REASON FOR CONSULT: I have been asked to see this 27-year-old female who comes to the hospital with three days of left mid and left lower quadrant abdominal pain. Pain has become increasingly severe over the last 1 to 2 days prompting the patient to come to the hospital. The patient was treated at [facility] in [place] for diverticulitis about five years ago. She has not had any further attacks since then up until now. She did have a colonoscopy five years ago, which was unremarkable except for the diverticulosis. CT scan of the abdomen and pelvis performed in the Emergency Room revealed some mural thickening with extra colonic inflammation with stranding of the pericolonic fat as well as a small except for a small amount of extraluminal gas. There is also diverticulosis in the descending and sigmoid colon. The patient denies any pneumaturia, dysuria, rectal bleeding, nausea, vomiting or melena. She does admit to some diarrhea for the last two days. PAST MEDICAL HISTORY: Notable for diverticulitis. PAST SURGICAL HISTORY: Notable for bilateral fasciotomy of her lower extremities. SOCIAL HISTORY: She denies cigarette smoking or alcohol use. FAMILY HISTORY: Noncontributory. REVIEW OF SYSTEMS: The 14-point review of systems is notable for abdominal pain and diarrhea. PHYSICAL EXAMINATION: GENERAL: A young female lying in bed in no acute distress. VITAL SIGNS: Reveal temperature 98, blood pressure 108/65, heart rate of 77. HEENT: Reveal sclerae to be white. Conjunctivae pink. NECK: Supple. CHEST AND LUNGS: Clear. HEART: Exam reveals a regular rate and rhythm. ABDOMEN: Soft. Mild tenderness in the left upper quadrant, left mid abdomen and left lower quadrant. There is no rebound. There is no guarding. EXTREMITIES: Show no edema. DATA: Laboratory data reveal white blood cell count 10.4. Chemistries show normal electrolytes. CT scan of the abdomen and pelvis are as per HPI. IMPRESSION: Diverticulitis involving the splenic flexure with micro perforation. RECOMMENDATIONS: 1. To continue IV Zosyn. 2. Keep n.p.o. for another 24 hours given the presence of microperforation and presence of a small amount of extraluminal gas on CT scan. If the patient improves, can consider starting clear liquids in another 24 hours. Bola Webb MD [facility] # [id number]
--- NOTE | 2018-06-06 15:27 | CP.PCM.CON ---
History of Present Illness - History of Present Illness History of Present Illness: 27 year old female with PMH of diverticulitis, morbid obesity with BMI 41, history of bilateral lower leg fasciotomy, [place] [facility] [place] of lower abdominal pain for the past 2-3 days, associated with anorexia, nausea and some loose bowel movements. She had subjective fevers but no documentation of fever on this admission. She denies headache or dizziness, no chest pain, no SOB, no cough or rhinorrhea, no sore throat. CT scan of the abdomen and pelvis is showing descending colon diverticulitis at the splenic flexure with small pocket of extraluminal gas. Infectious diseases consult is requested to further evaluate and manage. Review of Systems - Review of Systems All systems: reviewed and no additional remarkable complaints except (as per HPI ) Past Patient History - Infectious Disease Hx of Infectious Diseases: None - Past Medical History & Family History Past Medical History?: No - Past Social History Smoking Status: Never Smoked Alcohol: Social Drugs: Cannabis (smokes 3x/week) - CARDIAC Hx Cardiac Disorders: No - PULMONARY Hx Respiratory Disorders: No - NEUROLOGICAL Hx Neurological Disorder: No - HEENT Hx HEENT Problems: No - RENAL Hx Chronic Kidney Disease: No - ENDOCRINE/METABOLIC Hx Endocrine Disorders: No - HEMATOLOGICAL/ONCOLOGICAL Hx Blood Disorders: No - INTEGUMENTARY Hx Dermatological Problems: No - MUSCULOSKELETAL/RHEUMATOLOGICAL Hx Musculoskeletal Disorders: No - GASTROINTESTINAL Hx Diverticulitis: Yes - GENITOURINARY/GYNECOLOGICAL Hx Genitourinary Disorders: No - PSYCHIATRIC Hx Psychophysiologic Disorder: No Hx Substance Use: No - SURGICAL HISTORY Other/Comment: b/l lower leg fasciotomy Meds Allergies/Adverse Reactions: Allergies Allergy/AdvReac Type Severity Reaction Status Date / Time No Known Allergies Allergy Verified 06/05/18 08:42 - Medications Medications: Current Medications Enoxaparin Sodium (Lovenox) 40 mg SC DAILY [facility] PRN Reason: Protocol Last Admin: 06/06/18 10:19 Dose: 40 mg Lactated Ringer's (Lactated Ringer's) 1,000 mls @ 150 mls/hr IV .Q6H40M [facility] Last Admin: 06/06/18 00:48 Dose: Not Given Piperacillin Sod/Tazobactam Sod (Zosyn 3.375 In Ns 100ml) 100 mls @ 200 mls/hr IVPB Q6H [facility] PRN Reason: Protocol Stop: 06/13/18 06:31 Last Admin: 06/06/18 07:47 Dose: 200 mls/hr Morphine Sulfate (Morphine) 1 mg IVP Q6 PRN PRN Reason: Pain, moderate (4-7) Last Admin: 06/05/18 16:32 Dose: 1 mg Ondansetron HCl (Zofran Inj) 4 mg IVP Q6H PRN PRN Reason: Nausea/Vomiting Pantoprazole Sodium (Protonix Ec Tab) 40 mg PO 0600 [facility] Last Admin: 06/06/18 05:53 Dose: 40 mg Physical Exam - Constitutional Appears: Non-toxic, Chronically Ill - Head Exam Head Exam: NORMAL INSPECTION - Respiratory Exam Respiratory Exam: Decreased Breath Sounds - Cardiovascular Exam Cardiovascular Exam: +S1, +S2 - GI/Abdominal Exam GI & Abdominal Exam: Soft, Tenderness (mild, Left sided). absent: Distended, Firm, Guarding, Rebound, Rigid Results - Vital Signs Recent Vital Signs: Last Vital Signs Temp 98 F 06/06/18 06:00 Pulse 77 06/06/18 06:00 Resp 20 06/06/18 06:00 BP 108/65 06/06/18 06:00 Pulse Ox 97 06/06/18 06:00 - Labs Result Diagrams: 06/06/18 06:00 06/06/18 06:00 Labs: Laboratory Results - last 24 hr 06/05/18 06/06/18 06/06/18 16:25 06:00 06:00 WBC 10.4 RBC 4.04 Hgb 13.1 Hct 38.5 MCV 95.3 MCH 32.4 MCHC 34.0 RDW 12.3 Plt Count 199 MPV 10.2 Gran % 73.9 H Lymph % (Auto) 17.4 L [place] % (Auto) 8.0 H Eos % (Auto) 0.5 L Baso % (Auto) 0.2 Gran # 7.71 H Lymph # (Auto) 1.8 [place] # (Auto) 0.8 H Eos # (Auto) 0.1 Baso # (Auto) 0.02 Sodium 140 Potassium 4.2 Chloride 105 Carbon Dioxide 24 Anion Gap 16 BUN 8 Creatinine 0.7 Est GFR ( Amer) > 60 Est GFR (Non-Af Amer) > 60 Random Glucose 93 Calcium 8.8 Total Bilirubin 1.4 H AST 25 ALT 35 Alkaline Phosphatase 58 Troponin I Total Protein 7.2 Albumin 4.0 Globulin 3.2 Albumin/Globulin Ratio 1.3 Stool Occult Blood Negative 06/06/18 07:30 WBC RBC Hgb Hct MCV MCH MCHC RDW Plt Count MPV Gran % Lymph % (Auto) [place] % (Auto) Eos % (Auto) Baso % (Auto) Gran # Lymph # (Auto) [place] # (Auto) Eos # (Auto) Baso # (Auto) Sodium Potassium Chloride Carbon Dioxide Anion Gap BUN Creatinine Est GFR ( Amer) Est GFR (Non-Af Amer) Random Glucose Calcium Total Bilirubin AST ALT Alkaline Phosphatase Troponin I < 0.01 Total Protein Albumin Globulin Albumin/Globulin Ratio Stool Occult Blood Assessment & Plan - Assessment and Plan (Free Text) Plan: Assessment Acute descending colon diverticulitis in this patient with history of diverticulitis morbid obesity with BMI 41 history of bilateral lower leg fasciotomy Plan started patient on Zosyn and will follow up blood cx; will monitor clinical response follow up further plans of Surgery will check HIV test because of surgery will monitor clinically
[2018-06-06 16:12] LABS: TROPONIN I < 0.01 ng/mL
[2018-06-07] MEDS: Piperacillin/Tazobact 3.375 gm 100 ML IVPB SCH ×3 (05:36→17:47)
[2018-06-07] MEDS: Lactated Ringer's 1,000 ML IV SCH (05:36)
[2018-06-07] MEDS: Pantoprazole 40 mg EC Tab PO SCH (05:37)
[2018-06-07 07:03] LABS: BASO # 0.02 K/mm3 (0.0-2.0); BASO % 0.3 % (0.0-3.0); EOS # 0.1 (0.0-0.7); EOS % 1.5 % (1.5-5.0); GRAN # 4.27 (1.4-6.5); GRAN % 64.7 % (50.0-68.0); HEMOGLOBIN 12.2 g/dL (12.0-16.0); LYMPH # 1.8 (1.2-3.4); LYMPH % 26.5 % (22.0-35.0); MEAN CELL VOLUME 94.2 fl (80.0-105.0); MEAN CORPUSCULAR HEMOGLOBIN 32.2 pg (25.0-35.0); MEAN CORPUSCULAR HGB CONC 34.2 g/dl (31.0-37.0); MEAN PLATELET VOLUME 10.2 fl (7.0-11.0); MONO # 0.5 (0.1-0.6); RBC 3.79 10^6/uL (3.5-6.1); RED CELL DISTRIBUTION WIDTH 12.1 % (11.5-14.5); WHITE BLOOD COUNT 6.6 10^3/ul (4.5-11.0)
[2018-06-07 08:06] LABS: ALB/GLOB RATIO 1.2 (1.1-1.8); ALBUMIN 3.5 g/dL (3.0-4.8); ALT/SGPT 32 U/L (7-56); AST/SGOT 18 U/L (14-36); BLOOD UREA NITROGEN 7 mg/dL (7-21); CALCIUM 8.5 mg/dL (8.4-10.5); GFR AFRICAN-AMERICAN > 60; GFR NON-AFRICAN AMERICAN > 60
--- NOTE | 2018-06-07 08:17 | CP.PCM.PN ---
Subjective - Date & Time of Evaluation Date of Evaluation: 06/07/18 Time of Evaluation: 07:00 - Subjective Subjective: PT seen and examined this AM. Patient states that she has had no more diarrhea since yesterday afternoon, and that her pain is improved but still present in the LLQ. States that she is very hungry, denies any fevers or chills. Objective - Vital Signs/Intake and Output Vital Signs (last 24 hours): Temp Pulse Resp BP Pulse Ox 98.2 F 70 20 115/76 98 06/06/18 22:40 06/06/18 22:40 06/06/18 22:40 06/06/18 22:40 06/06/18 22:40 Intake and Output: 06/07/18 06/07/18 06:59 18:59 Intake Total 3600 Balance 3600 - Medications Medications: Current Medications Acetaminophen (Tylenol 325mg Tab) 650 mg PO Q6H PRN PRN Reason: Other Last Admin: 06/06/18 15:09 Dose: 650 mg Enoxaparin Sodium (Lovenox) 40 mg SC DAILY [facility] PRN Reason: Protocol Last Admin: 06/06/18 10:19 Dose: 40 mg Lactated Ringer's (Lactated Ringer's) 1,000 mls @ 150 mls/hr IV .Q6H40M [facility] Last Admin: 06/07/18 05:36 Dose: 150 mls/hr Piperacillin Sod/Tazobactam Sod (Zosyn 3.375 In Ns 100ml) 100 mls @ 200 mls/hr IVPB Q6H [facility] PRN Reason: Protocol Stop: 06/13/18 06:31 Last Admin: 06/07/18 05:36 Dose: 200 mls/hr Morphine Sulfate (Morphine) 1 mg IVP Q6 PRN PRN Reason: Pain, moderate (4-7) Last Admin: 06/06/18 23:18 Dose: 1 mg Ondansetron HCl (Zofran Inj) 4 mg IVP Q6H PRN PRN Reason: Nausea/Vomiting Pantoprazole Sodium (Protonix Ec Tab) 40 mg PO 0600 [facility] Last Admin: 06/07/18 05:37 Dose: 40 mg - Labs Labs: 06/07/18 06:30 06/07/18 06:30 - Constitutional Appears: Well, Non-toxic, No Acute Distress - Head Exam Head Exam: ATRAUMATIC, NORMOCEPHALIC - Eye Exam Eye Exam: Normal appearance. absent: Conjunctival injection, Scleral icterus - ENT Exam ENT Exam: Mucous Membranes Moist, Normal Oropharynx - Respiratory Exam Respiratory Exam: NORMAL BREATHING PATTERN. absent: Accessory Muscle Use, Respiratory Distress - Cardiovascular Exam Cardiovascular Exam: RRR - GI/Abdominal Exam GI & Abdominal Exam: Soft, Tenderness (LLQ and suprapubic moderate tenderness. LUQ mild tenderness to deep palpation). absent: Distended, Rebound - Extremities Exam Extremities Exam: absent: Calf Tenderness, Pedal Edema, Tenderness - Neurological Exam Neurological Exam: Alert, Awake, Oriented x3 - Psychiatric Exam Psychiatric exam: Normal Affect, Normal Mood - Skin Skin Exam: Dry, Intact, Normal Color, Warm Assessment and Plan - Assessment and Plan (Free Text) Assessment: 27F with recurrent diverticulitis, microperforation with extraluminal air near the splenic flexture. Plan: Continue to trend CBC/BMP. WBC wnl this AM. Close clinical exams IVF IV antibiotics Patient is clear to advance to [facility] this AM from a surgical standpoint, but will defer to GI recs Continue conservative management at this time, no surgical intervention as long as patient continues to clinically improve Patient will need close GI follow up as an outpatient, with colonoscopy after acute diverticulitis has resolved. Recommend follow up with Dr. Hardin in his office, high fiber diet and weight loss as an outpatient Will continue to follow Discussed with Dr. Hardin, further recommendations per him Mandy Parks, PGY2
[2018-06-07] MEDS ORDERED: Oxycodone/Acetaminophen 5/325 mg Tab PO PRN (09:08)
[2018-06-07] MEDS ORDERED: Morphine 2 mg/ml ISec IVP PRN (09:10)
[2018-06-07] MEDS: Enoxaparin 40 mg Syringe SC SCH (09:49)
[2018-06-07] MEDS: Potassium Chloride 20 MEQ in Dextrose 5%/0.45% NS 1,000 ML IV SCH ×2 (09:59→15:18)
--- NOTE | 2018-06-07 14:41 | PN ---
DATE: 06/07/2018 SUBJECTIVE: The patient is in bed, in no acute distress, nontoxic. She states her abdominal pain is improved. PHYSICAL EXAMINATION VITAL SIGNS: Temperature is 98, blood pressure is 100/60, respiratory rate of 18. HEENT: Unremarkable. NECK: Supple. LUNGS: Have decreased breath sounds. HEART: Normal S1 and S2. ABDOMEN: Soft. LABORATORY DATA: Reveals a white count of 6.6, hemoglobin of 12. Chemistries revealed a BUN of 7, creatinine of 0.6 and urinalysis is noted. HIV is negative. Microbiology is negative. ASSESSMENT AND PLAN: This is a 27 years old with diverticulitis, morbid obesity, body mass index of 41, bilateral lower leg fasciotomy and admitted with acute descending colon diverticulitis in this patient with a history of diverticulitis and she states she was adopted, she does not have any family history. Currently on Zosyn. We will continue present course. Nestor Corrales MD
--- NOTE | 2018-06-07 14:57 | CP.PCM.PN ---
<Bro Salinas - Last Filed: 06/07/18 18:26> Subjective - Date & Time of Evaluation Date of Evaluation: 06/07/18 Time of Evaluation: 07:00 - Subjective Subjective: Bro Salinas PGY-1 Progress Note for the Hospitalist Service Patient seen and examined at bedside. Abdominal pain improving. Reports loose stools continuing. Denies chest pain, nausea and vomiting, headache and dizziness. Objective - Vital Signs/Intake and Output Vital Signs (last 24 hours): Temp Pulse Resp BP Pulse Ox 98.3 F 65 20 100/58 L 97 06/07/18 08:39 06/07/18 08:39 06/07/18 08:39 06/07/18 08:39 06/07/18 08:39 Intake and Output: 06/07/18 06/07/18 06:59 18:59 Intake Total 3600 Balance 3600 - Medications Medications: Current Medications Acetaminophen (Tylenol 325mg Tab) 650 mg PO Q6H PRN PRN Reason: Other Last Admin: 06/06/18 15:09 Dose: 650 mg Enoxaparin Sodium (Lovenox) 40 mg SC DAILY [facility] PRN Reason: Protocol Last Admin: 06/07/18 09:49 Dose: 40 mg Piperacillin Sod/Tazobactam Sod (Zosyn 3.375 In Ns 100ml) 100 mls @ 200 mls/hr IVPB Q6H [facility] PRN Reason: Protocol Stop: 06/13/18 06:31 Last Admin: 06/07/18 12:13 Dose: 200 mls/hr Potassium Chloride 20 meq/ (Dextrose/Sodium Chloride) 1,010 mls @ 150 mls/hr IV .Q6H44M [facility] Last Admin: 06/07/18 09:59 Dose: 150 mls/hr Morphine Sulfate (Morphine) 1 mg IVP Q6 PRN PRN Reason: Pain, severe (8-10) Ondansetron HCl (Zofran Inj) 4 mg IVP Q6H PRN PRN Reason: Nausea/Vomiting Oxycodone/Acetaminophen (Percocet 5/325 Mg Tab) 1 tab PO Q4H PRN PRN Reason: Pain, moderate (4-7) Stop: 06/10/18 09:09 Pantoprazole Sodium (Protonix Ec Tab) 40 mg PO 0600 [facility] Last Admin: 06/07/18 05:37 Dose: 40 mg - Labs Labs: 06/07/18 06:30 06/07/18 06:30 - Constitutional Appears: Well, Non-toxic, No Acute Distress - Head Exam Head Exam: ATRAUMATIC, NORMAL INSPECTION, NORMOCEPHALIC - Eye Exam Eye Exam: EOMI, Normal appearance, PERRL Pupil Exam: NORMAL ACCOMODATION - ENT Exam ENT Exam: Mucous Membranes Moist - Neck Exam Neck Exam: Normal Inspection - Respiratory Exam Respiratory Exam: Clear to Ausculation Bilateral, NORMAL BREATHING PATTERN. absent: Rhonchi, Wheezes - Cardiovascular Exam Cardiovascular Exam: RRR, +S1, +S2 - GI/Abdominal Exam GI & Abdominal Exam: Soft, Normal Bowel Sounds. absent: Tenderness Additional comments: Mild epigastric tenderness. Moderate LLQ pain. - Neurological Exam Neurological Exam: Alert, Awake, Oriented x3 - Psychiatric Exam Psychiatric exam: Normal Affect, Normal Mood - Skin Skin Exam: Dry, Intact, Normal Color, Warm Assessment and Plan - Assessment and Plan (Free Text) Assessment: Ms. Porter is a 27 year old Female who came in to the hospital for abdominal pain secondary to recurrent diverticulitis. CT abdomen was significant for a pocket of extraluminal gas. Recurrent Diverticulitis - Afebrile, leukocytosis resolved- 6.6 currently - CT from 5 years ago showed diverticulitis of mid descending colon without evidence of abscess formation - CT abdomen yesterday showed diverticulitis in splenic flexure with small pocket of extraluminal gas. - Surgery consulted. No surgery recommended at this time. Zosyn 3.375 Q6H. Currently day 3 of Zosyn. - Diet advanced to clear liquids - NPO and on IVF LR @150 cc/hr. - GI consulted - UA negative for ascending infection - Zofran 4 mg IVP q6 PRN for nausea - test negative - f/u am labs Diarrhea - Multiple watery Bowel movements reported over past 2 days - negative FOBT - c. diff antigen +, toxin negative - contact precautions, isolation, and repeat c diff sent - Vanc 250 PO QID began per ID Chest Pain - Patient reported 3/10 chest pain, Stat ECG and troponins ordered. Negative Trop x3 - ECG showed normal sinus rhythm with sinus arrythmia - Will monitor symptoms closely Pain Control - Morphine 1 mg IVP q[address] GI/DVT PPx - Protonix 40 - SCD's Patient seen, case reviewed, and plan agreed upon with Dr. Cathi De La Cruz. Bro Salinas, PGY-1 <Susan De La Cruz - Last Filed: 06/08/18 07:45> Objective - Vital Signs/Intake and Output Vital Signs (last 24 hours): Temp Pulse Resp BP Pulse Ox 98.9 F 64 20 92/50 L 98 06/07/18 15:43 06/07/18 15:43 06/07/18 15:43 06/07/18 15:43 06/07/18 15:43 Intake and Output: 06/08/18 06/08/18 06:59 18:59 Intake Total 540 Output Total 1520 Balance -980 - Medications Medications: Current Medications Acetaminophen (Tylenol 325mg Tab) 650 mg PO Q6H PRN PRN Reason: Other Last Admin: 06/06/18 15:09 Dose: 650 mg Enoxaparin Sodium (Lovenox) 40 mg SC DAILY [facility] PRN Reason: Protocol Last Admin: 06/07/18 09:49 Dose: 40 mg Piperacillin Sod/Tazobactam Sod (Zosyn 3.375 In Ns 100ml) 100 mls @ 200 mls/hr IVPB Q6H [facility] PRN Reason: Protocol Stop: 06/13/18 06:31 Last Admin: 06/08/18 05:36 Dose: 200 mls/hr Potassium Chloride 20 meq/ (Dextrose/Sodium Chloride) 1,010 mls @ 150 mls/hr IV .Q6H44M [facility] Last Admin: 06/08/18 00:46 Dose: 150 mls/hr Morphine Sulfate (Morphine) 1 mg IVP Q6 PRN PRN Reason: Pain, severe (8-10) Ondansetron HCl (Zofran Inj) 4 mg IVP Q6H PRN PRN Reason: Nausea/Vomiting Oxycodone/Acetaminophen (Percocet 5/325 Mg Tab) 1 tab PO Q4H PRN PRN Reason: Pain, moderate (4-7) Stop: 06/10/18 09:09 Pantoprazole Sodium (Protonix Ec Tab) 40 mg PO 0600 [facility] Last Admin: 06/08/18 05:36 Dose: 40 mg Vancomycin HCl (Vancocin 25 Mg/Ml (Oral Use)) 250 mg PO QID [facility] PRN Reason: Protocol Last Admin: 06/07/18 21:14 Dose: 250 mg - Labs Labs: 06/08/18 07:00 06/07/18 06:30 Attending/Attestation - Attestation I have personally seen and examined this patient.: Yes I have fully participated in the care of the patient.: Yes I have reviewed all pertinent clinical information, including history, physical exam and plan: Yes Notes (Text): 06/07/18 27 year old female with past medical history of diverticulitis who presented with complaint of abdominal pain. CT abd/pelvis showed diverticulitis in splenic flexure with small pocket of extraluminal gas. GI and surgery are following. Continue with IVF, analgesics and iv antibiotics. Symptoms are slowly improving. Leukocytosis has improved. Will advance diet to clear liquids. Serial cardiac enzymes were negative and ACS has been ruled out. Chest pain has improved. CDif study was positive for CDif antigen and negative for CDif toxin. She is started on po vancomycin. Susan De La Cruz MD Hospitalist.
[2018-06-07] MEDS: Vancomycin 25 MG/ML PO SCH ×2 (17:10→21:14)
[2018-06-08] MEDS: Potassium Chloride 20 MEQ in Dextrose 5%/0.45% NS 1,000 ML IV SCH (00:46)
[2018-06-08] MEDS: Piperacillin/Tazobact 3.375 gm 100 ML IVPB SCH ×3 (00:48→11:35)
--- NOTE | 2018-06-08 01:41 | PN ---
DATE: 06/07/2018 SUBJECTIVE: This patient was seen and evaluated earlier today. Patient is feeling better. Patient's father was at bedside. Patient remains n.p.o. PHYSICAL EXAMINATION: VITAL SIGNS: Temperature is 98.9, pulse 64, blood pressure 100/58, respirations 20, O2 saturation 97%. HEENT: Atraumatic, anicteric. NECK: Supple. HEART: S1 and S2 heard. LUNGS: Bilateral air entry present. ABDOMEN: Soft. Patient has tenderness in the left side of the abdomen. EXTREMITIES: No edema, no cyanosis. NEUROLOGICAL: Alert, oriented, moves all the extremities. LABORATORY DATA: Hemoglobin 12.2, hematocrit 35.7, WBC 6.6, platelets 188. Chemistry is essentially unremarkable. IMPRESSION: This 27-year-old patient is admitted with acute diverticulitis with involvement of the descending colon, sigmoid, and splenic flexure involvement. Patient has more significant microperforation changes in the splenic flexure area. Patient had an episode about 5 years ago in [place]. Patient did not have any further episodes until now. No bowel symptoms in between. The impression is acute diverticulitis with microperforation. Continue the intravenous antibiotics. The concern is also large area of involvement of the sigmoid colon and also descending colon, in addition to the splenic flexure area, rather large involvement. Would recommend in this patient; 1. Advance to clear liquid diet tomorrow. 2. Continue the IV antibiotics. 3. Patient would definitely benefit from elective colonoscopic evaluation after 4 weeks. Another differential diagnosis to be considered in this patient is inflammatory bowel disease large area of colon involvement, but clinical presentation is more in favor of acute diverticulitis. Discussed with the patient and also patient's father, at the request of the patient, at length. Thank you very much for allowing us to participate in the care of this patient. Jamal Savage MD JOHN
[2018-06-08] MEDS: Pantoprazole 40 mg EC Tab PO SCH (05:36)
[2018-06-08 07:37] LABS: BASO # 0.03 K/mm3 (0.0-2.0); BASO % 0.5 % (0.0-3.0); EOS # 0.1 (0.0-0.7); EOS % 2.3 % (1.5-5.0); GRAN # 2.75 (1.4-6.5); GRAN % 49.3 % (50.0-68.0); HEMOGLOBIN 12.4 g/dL (12.0-16.0); LYMPH # 2.2 (1.2-3.4); LYMPH % 39.1 % (22.0-35.0); MEAN CELL VOLUME 94.3 fl (80.0-105.0); MEAN CORPUSCULAR HEMOGLOBIN 32.3 pg (25.0-35.0); MEAN CORPUSCULAR HGB CONC 34.3 g/dl (31.0-37.0); MEAN PLATELET VOLUME 10.1 fl (7.0-11.0); MONO # 0.5 (0.1-0.6); MONO % 8.8 % (1.0-6.0); RBC 3.84 10^6/uL (3.5-6.1); WHITE BLOOD COUNT 5.6 10^3/ul (4.5-11.0)
[2018-06-08 08:05] LABS: ALB/GLOB RATIO 1.2 (1.1-1.8); ALBUMIN 3.6 g/dL (3.0-4.8); ALT/SGPT 25 U/L (7-56); AST/SGOT 28 U/L (14-36); BLOOD UREA NITROGEN 5 mg/dL (7-21); CALCIUM 8.8 mg/dL (8.4-10.5); GFR AFRICAN-AMERICAN > 60; GFR NON-AFRICAN AMERICAN > 60
[2018-06-08] MEDS ORDERED: Potassium Chloride 20 MEQ in Dextrose 5%/0.45% NS 1,000 ML IV SCH (08:57)
--- NOTE | 2018-06-08 09:02 | CP.PCM.PN ---
Subjective - Date & Time of Evaluation Date of Evaluation: 06/08/18 Time of Evaluation: 07:00 - Subjective Subjective: GENERAL SURGERY PROGRESS NOTE FOR DR. FALCON Patient seen and examined at bedside. Pt states that she has mild pain, but it is improved from before. She is tolerating CLD, denies nausea or vomiting. She had a BM yesterday, loose, non bloody. Objective - Vital Signs/Intake and Output Vital Signs (last 24 hours): Temp Pulse Resp BP Pulse Ox 98.4 F 60 20 105/59 L 97 06/08/18 06:00 06/08/18 06:00 06/08/18 06:00 06/08/18 06:00 06/08/18 06:00 Intake and Output: 06/08/18 06/08/18 06:59 18:59 Intake Total 540 Output Total 1520 Balance -980 - Medications Medications: Current Medications Acetaminophen (Tylenol 325mg Tab) 650 mg PO Q6H PRN PRN Reason: Other Last Admin: 06/06/18 15:09 Dose: 650 mg Enoxaparin Sodium (Lovenox) 40 mg SC DAILY [facility] PRN Reason: Protocol Last Admin: 06/07/18 09:49 Dose: 40 mg Piperacillin Sod/Tazobactam Sod (Zosyn 3.375 In Ns 100ml) 100 mls @ 200 mls/hr IVPB Q6H [facility] PRN Reason: Protocol Stop: 06/13/18 06:31 Last Admin: 06/08/18 05:36 Dose: 200 mls/hr Potassium Chloride 20 meq/ (Dextrose/Sodium Chloride) 1,010 mls @ 70 mls/hr IV .[id number] [facility] Ondansetron HCl (Zofran Inj) 4 mg IVP Q6H PRN PRN Reason: Nausea/Vomiting Oxycodone/Acetaminophen (Percocet 5/325 Mg Tab) 1 tab PO Q4H PRN PRN Reason: Pain, moderate (4-7) Stop: 06/10/18 09:09 Pantoprazole Sodium (Protonix Ec Tab) 40 mg PO 0600 [facility] Last Admin: 06/08/18 05:36 Dose: 40 mg Vancomycin HCl (Vancocin 25 Mg/Ml (Oral Use)) 250 mg PO QID [facility] PRN Reason: Protocol Last Admin: 07/21/18 21:14 Dose: 250 mg - Labs Labs: 06/08/18 07:00 06/08/18 07:00 - Constitutional Appears: Well, Non-toxic, No Acute Distress - Head Exam Head Exam: ATRAUMATIC, NORMAL INSPECTION - Eye Exam Eye Exam: EOMI, Normal appearance - Respiratory Exam Respiratory Exam: NORMAL BREATHING PATTERN. absent: Respiratory Distress - Cardiovascular Exam Cardiovascular Exam: +S1, +S2 - GI/Abdominal Exam GI & Abdominal Exam: Soft. absent: Distended, Firm, Guarding, Rigid, Tenderness , Rebound - Neurological Exam Neurological Exam: Alert, Awake, Oriented x3 - Psychiatric Exam Psychiatric exam: Normal Affect, Normal Mood - Skin Skin Exam: Dry, Normal Color, Warm Assessment and Plan - Assessment and Plan (Free Text) Assessment: 27F with recurrent diverticulitis with microperforation Plan: - Afebrile, VSS - Serial abdominal exams - Tolerating CLD, advanced to low residue diet - Started on PO vanco by ID for C diff antigen + (toxin -) - No surgical intervention at this time, clear for discharge home on PO antibiotics from surgery standpoint - Elective colonoscopy as outpatient (pt going to [facility] in 5 weeks, needs colonoscopy and GI follow up prior to leaving) - Recommend follow up with Dr. Falcon in his office Discussed with Dr. Wilfred Dunn PGY-4
[2018-06-08] MEDS: Enoxaparin 40 mg Syringe SC SCH (09:22)
[2018-06-08] MEDS: Vancomycin 25 MG/ML PO SCH ×2 (09:24→13:14)
[2018-06-08 14:54] VITALS: BP 110/80; PULSE 68; RESP 18; TEMP 98; O2SAT 96
--- NOTE | 2018-06-08 16:01 | PN ---
DATE: 06/08/2018 SUBJECTIVE: The patient is in bed, in no acute distress. The patient was seen earlier this morning in 565, bed 2. PHYSICAL EXAMINATION: VITAL SIGNS: Temperature is 98, blood pressure is 105/90, respiratory rate is 20, heart rate of 60. HEENT: Unremarkable. NECK: Supple. LUNGS: Decreased breath sounds. HEART: Normal S1, S2. ABDOMEN: Soft, nontender. LABORATORY EXAMINATION: Reveals a white count of 5.6, hemoglobin of 12, and platelets of 222. Chemistries are noted and stool for occult blood is negative. Urinalysis is noted. HIV is negative. Microbiology reveals the blood cultures are negative. Stool for C. diff antigen is positive. Toxin is negative. Urine cultures negative. ASSESSMENT AND PLAN: A 27-year-old female with history of diverticulitis and morbid obesity, body mass index of 41 with bilateral lower leg fasciotomy history, was admitted with acute ascending colon diverticulitis and a history of diverticulitis and currently on Zosyn and p.o. vancomycin for positive Clostridium difficile. The patient continues to improve. There is a need for followup with Gastroenterology as an outpatient for a colonoscopy once the diverticulitis is subsided. We will follow with you. Nestor Corrales MD
--- NOTE | 2018-06-08 16:53 | CP.PCM.DIS ---
<Martin Adams - Last Filed: 06/08/18 20:57> Provider - Provider Date of Admission: 06/05/18 12:29 Attending physician: Susan De La Cruz MD Consults: GI - Dr. Savage Surgery - Dr. Hardin ID - Dr. Corrales Time Spent in preparation of Discharge (in minutes): 45 Hospital Course - Lab Results Lab Results: Micro Results 06/05/18 13:00 Blood-Venous Blood Culture - Preliminary NO GROWTH AFTER 3 DAYS 06/06/18 19:40 Stool C. difficile Antigen & Toxin A,B (M - Final Most Recent Lab Values WBC 5.6 10^3/ul (4.5-11.0) 06/08/18 07:00 RBC 3.84 10^6/uL (3.5-6.1) 06/08/18 07:00 Hgb 12.4 g/dL (12.0-16.0) 06/08/18 07:00 Hct 36.2 % (36.0-48.0) 06/08/18 07:00 MCV 94.3 fl (80.0-105.0) 06/08/18 07:00 MCH 32.3 pg (25.0-35.0) 06/08/18 07:00 MCHC 34.3 g/dl (31.0-37.0) 06/08/18 07:00 RDW 12.0 % (11.5-14.5) 06/08/18 07:00 Plt Count 222 10^3/uL (120.0-450.0) 06/08/18 07:00 MPV 10.1 fl (7.0-11.0) 06/08/18 07:00 Gran % 49.3 % (50.0-68.0) L 06/08/18 07:00 Lymph % (Auto) 39.1 % (22.0-35.0) H 06/08/18 07:00 [place] % (Auto) 8.8 % (1.0-6.0) H 06/08/18 07:00 Eos % (Auto) 2.3 % (1.5-5.0) 06/08/18 07:00 Baso % (Auto) 0.5 % (0.0-3.0) 06/08/18 07:00 Gran # 2.75 (1.4-6.5) 06/08/18 07:00 Lymph # (Auto) 2.2 (1.2-3.4) 06/08/18 07:00 [place] # (Auto) 0.5 (0.1-0.6) 06/08/18 07:00 Eos # (Auto) 0.1 (0.0-0.7) 06/08/18 07:00 Baso # (Auto) 0.03 K/mm3 (0.0-2.0) 06/08/18 07:00 Sodium 142 mmol/L (132-148) 06/08/18 07:00 Potassium 3.8 mmol/L (3.6-5.0) 06/08/18 07:00 Chloride 108 mmol/L (98-107) H 06/08/18 07:00 Carbon Dioxide 24 mmol/L (21-33) 06/08/18 07:00 Anion Gap 14 (10-20) 06/08/18 07:00 BUN 5 mg/dL (7-21) L 06/08/18 07:00 Creatinine 0.7 mg/dl (0.7-1.2) 06/08/18 07:00 Est GFR ( Amer) > 60 06/08/18 07:00 Est GFR (Non-Af Amer) > 60 06/08/18 07:00 Random Glucose 99 mg/dL (70-110) 06/08/18 07:00 Calcium 8.8 mg/dL (8.4-10.5) 06/08/18 07:00 Phosphorus 2.8 mg/dL (2.5-4.5) 06/07/18 07:30 Magnesium 1.9 mg/dL (1.7-2.2) 06/07/18 07:30 Total Bilirubin 0.4 mg/dL (0.2-1.3) 06/08/18 07:00 AST 28 U/L (14-36) 06/08/18 07:00 ALT 25 U/L (7-56) 06/08/18 07:00 Alkaline Phosphatase 49 U/L (38-126) 06/08/18 07:00 Lactate Dehydrogenase 295 U/L (333-699) L 06/06/18 15:30 Total Creatine Kinase 55 U/L (35-230) 06/06/18 15:30 Troponin I < 0.01 ng/mL 06/06/18 21:30 Total Protein 6.6 g/dL (5.8-8.3) 06/08/18 07:00 Albumin 3.6 g/dL (3.0-4.8) 06/08/18 07:00 Globulin 3.0 gm/dL 06/08/18 07:00 Albumin/Globulin Ratio 1.2 (1.1-1.8) 06/08/18 07:00 Lipase 45 U/L (23-300) 06/05/18 09:05 Urine Color Yellow (YELLOW) 06/05/18 09:04 Urine Appearance Clear (CLEAR) 06/05/18 09:04 Urine pH 6.0 (4.7-8.0) 06/05/18 09:04 Ur Specific [place] 1.025 (1.005-1.035) 06/05/18 09:04 Urine Protein Trace mg/dL (<30 mg/dL) H 06/05/18 09:04 Urine Glucose (UA) Negative mg/dL (NEGATIVE) 06/05/18 09:04 Urine Ketones Negative mg/dL (NEGATIVE) 06/05/18 09:04 Urine Blood Negative (NEGATIVE) 06/05/18 09:04 Urine Nitrate Negative (NEGATIVE) 06/05/18 09:04 Urine Bilirubin Negative (NEGATIVE) 06/05/18 09:04 Urine Urobilinogen 0.2 E.U./dL (<1 E.U./dL) 06/05/18 09:04 Ur Leukocyte Esterase Negative Rut/uL (NEGATIVE) 06/05/18 09:04 Urine RBC 0 - 2 /hpf (0-2) 06/05/18 09:04 Urine WBC 1 - 3 /hpf (0-6) 06/05/18 09:04 Ur Epithelial Cells 6 - 8 /hpf (0-5) 06/05/18 09:04 Urine Bacteria Many (NEG) 06/05/18 09:04 Urine Other Uyeast 06/05/18 09:04 Urine HCG, Qual Negative (NEGATIVE) 06/05/18 09:04 Stool Occult Blood Negative (NEGATIVE) 06/05/18 16:25 HIV 1&2 Ag/Ab, 4th Gen Nonreactive (Nonreactive) 06/06/18 07:30 - Hospital Course Hospital Course: Martin Adams DO PGY-1, Investigation Division Sergeant Medicine Discharge Summary This is a 27 year old F with a PMHx of diverticulitis who presented with abdominal pain for three days on 06/05/18. Patient described the pain as a 5/10, constant dull pain with intermittent sharp stabbing pains. Patient pointed to her stomach and left lower abdomen. Patient related a history of diverticulitis first diagnosed in February of 2013 at [facility] in [facility]. CT at that time showed colonic diverticulosis most severely affecting the sigmoid and descending colon and acute diverticulitis without abscess formation. Follow up colonoscopy showed mild diverticulosis in the sigmoid, transverse and cecum. Patient also admitted to two occasions of nonbloody diarrhea on day of admission and mild nausea. Patient denied CP, SOB, palpitations, change in frequency or dysuria, fevers, chills, or weight loss. Ct abd/pelvis demonstrated diverticulitis on splenic flexure, small extraluminal gas, diverticulosis with mural thickening in descending and sigmoid colon. GI was consulted (Dr. Savage), who recommended pt follow up as outpatient for EGD/ colonoscopy after discharge. Surgery (Dr. Hardin) was consulted, who recommended no surgical intervention. Pt was placed on IV zosyn for diverticulitis as per surgery, and PO vancomycin (as per ID, Dr. Corrales), for C.diff treatment. Pt was placed on contact precautions during admission, and C.diff antigen was positive, C.diff toxin negative. Pt still had diarrhea during admission, thus was treated clinically for C.diff. Pt was advanced up to full diet and tolerated it well on discharge, diarrhea improved, and patient stated abdominal pain improved. She was discharged to home in stable condition to follow-up with [facility] (PCP) within 1 week, GI (Dr. Savage) within 1 week for EGD/colonoscopy, and Surgery (Dr. Hardin - [facility] within 1-2 weeks of discharge. Pt was instructed to eat high fiber diet, advance foods at home as tolerated. Pt was discharged on PO Vancomycin and Augmentin, to be completed for 10 day course. Discharge Exam - Head Exam Head Exam: ATRAUMATIC, NORMAL INSPECTION - Eye Exam Eye Exam: EOMI, Normal appearance, PERRL - ENT Exam ENT Exam: Mucous Membranes Moist, Normal Oropharynx - Neck Exam Neck exam: Full Rom, Normal Inspection - Respiratory Exam Respiratory Exam: Clear to PA & Lateral, NORMAL BREATHING PATTERN - Cardiovascular Exam Cardiovascular Exam: REGULAR RHYTHM, +S1, +S2 - GI/Abdominal Exam GI & Abdominal Exam: Normal Bowel Sounds, Soft - Extremities Exam Extremities exam: full ROM, normal capillary refill, normal inspection, pedal pulses present - Back Exam Back exam: FULL ROM, NORMAL INSPECTION - Neurological Exam Neurological exam: Alert, CN II-XII Intact, Normal Gait, Oriented x3 - Psychiatric Exam Psychiatric exam: Normal Affect, Normal Mood - Skin Skin Exam: Dry, Intact, Normal Color, Warm Discharge Plan - Discharge Medications Prescriptions: Amoxicillin/Clavulanate [Augmentin 875 MG-125 MG] 1 tab PO BID #20 tab Vancomycin [Vancocin 25 mg/ml (Oral Use)] 250 mg PO QID #100 ml - Follow Up Plan Condition: STABLE Disposition: HOME/ ROUTINE Instructions: Antibiotic-Associated Diarrhea (C. difficile Infection), Diverticulitis (DC), Clostridium difficile (DC), Perforation of the GI Tract ( DC) Additional Instructions: Please follow-up with the [facility], call [phone] to make appointment within 1 week after discharge. Please follow-up with Dr. Savage (GI) in clinic 1 week after discharge to schedule appointment for colonoscopy. Please follow-up with Dr. Hardin ([facility]) within 1-2 weeks after discharge. Please take medications as prescribed. Take Augmentin and Vancomycin as prescribed. Should symptoms recur or worsen, please call your PCP or report to your nearest emergency department. Referrals: Jamal Savage MD [Medical Doctor] - <Susan De La Cruz - Last Filed: 06/09/18 13:17> Provider - Provider Date of Admission: 06/05/18 12:29 Attending physician: Susan De La Cruz MD Hospital Course - Lab Results Lab Results: Micro Results 06/05/18 13:00 Blood-Venous Blood Culture - Preliminary NO GROWTH AFTER 4 DAYS 06/06/18 19:40 Stool Stool Culture - Final NO SALMONELLA, SHIGELLA OR CAMPYLOBACTER ISOLATED. 06/06/18 19:40 Stool C. difficile Antigen & Toxin A,B (M - Final Most Recent Lab Values WBC 5.6 10^3/ul (4.5-11.0) 06/08/18 07:00 RBC 3.84 10^6/uL (3.5-6.1) 06/08/18 07:00 Hgb 12.4 g/dL (12.0-16.0) 06/08/18 07:00 Hct 36.2 % (36.0-48.0) 06/08/18 07:00 MCV 94.3 fl (80.0-105.0) 06/08/18 07:00 MCH 32.3 pg (25.0-35.0) 06/08/18 07:00 MCHC 34.3 g/dl (31.0-37.0) 06/08/18 07:00 RDW 12.0 % (11.5-14.5) 06/08/18 07:00 Plt Count 222 10^3/uL (120.0-450.0) 06/08/18 07:00 MPV 10.1 fl (7.0-11.0) 06/08/18 07:00 Gran % 49.3 % (50.0-68.0) L 06/08/18 07:00 Lymph % (Auto) 39.1 % (22.0-35.0) H 06/08/18 07:00 [place] % (Auto) 8.8 % (1.0-6.0) H 06/08/18 07:00 Eos % (Auto) 2.3 % (1.5-5.0) 06/08/18 07:00 Baso % (Auto) 0.5 % (0.0-3.0) 06/08/18 07:00 Gran # 2.75 (1.4-6.5) 06/08/18 07:00 Lymph # (Auto) 2.2 (1.2-3.4) 06/08/18 07:00 [place] # (Auto) 0.5 (0.1-0.6) 06/08/18 07:00 Eos # (Auto) 0.1 (0.0-0.7) 06/08/18 07:00 Baso # (Auto) 0.03 K/mm3 (0.0-2.0) 06/08/18 07:00 Sodium 142 mmol/L (132-148) 06/08/18 07:00 Potassium 3.8 mmol/L (3.6-5.0) 06/08/18 07:00 Chloride 108 mmol/L (98-107) H 06/08/18 07:00 Carbon Dioxide 24 mmol/L (21-33) 06/08/18 07:00 Anion Gap 14 (10-20) 06/08/18 07:00 BUN 5 mg/dL (7-21) L 06/08/18 07:00 Creatinine 0.7 mg/dl (0.7-1.2) 06/08/18 07:00 Est GFR ( Amer) > 60 06/08/18 07:00 Est GFR (Non-Af Amer) > 60 06/08/18 07:00 Random Glucose 99 mg/dL (70-110) 06/08/18 07:00 Calcium 8.8 mg/dL (8.4-10.5) 06/08/18 07:00 Phosphorus 2.8 mg/dL (2.5-4.5) 06/07/18 07:30 Magnesium 1.9 mg/dL (1.7-2.2) 06/07/18 07:30 Total Bilirubin 0.4 mg/dL (0.2-1.3) 06/08/18 07:00 AST 28 U/L (14-36) 06/08/18 07:00 ALT 25 U/L (7-56) 06/08/18 07:00 Alkaline Phosphatase 49 U/L (38-126) 06/08/18 07:00 Lactate Dehydrogenase 295 U/L (333-699) L 06/06/18 15:30 Total Creatine Kinase 55 U/L (35-230) 06/06/18 15:30 Troponin I < 0.01 ng/mL 06/06/18 21:30 Total Protein 6.6 g/dL (5.8-8.3) 06/08/18 07:00 Albumin 3.6 g/dL (3.0-4.8) 06/08/18 07:00 Globulin 3.0 gm/dL 06/08/18 07:00 Albumin/Globulin Ratio 1.2 (1.1-1.8) 06/08/18 07:00 Lipase 45 U/L (23-300) 06/05/18 09:05 Urine Color Yellow (YELLOW) 06/05/18 09:04 Urine Appearance Clear (CLEAR) 06/05/18 09:04 Urine pH 6.0 (4.7-8.0) 06/05/18 09:04 Ur Specific [place] 1.025 (1.005-1.035) 06/05/18 09:04 Urine Protein Trace mg/dL (<30 mg/dL) H 06/05/18 09:04 Urine Glucose (UA) Negative mg/dL (NEGATIVE) 06/05/18 09:04 Urine Ketones Negative mg/dL (NEGATIVE) 06/05/18 09:04 Urine Blood Negative (NEGATIVE) 06/05/18 09:04 Urine Nitrate Negative (NEGATIVE) 06/05/18 09:04 Urine Bilirubin Negative (NEGATIVE) 06/05/18 09:04 Urine Urobilinogen 0.2 E.U./dL (<1 E.U./dL) 06/05/18 09:04 Ur Leukocyte Esterase Negative Rut/uL (NEGATIVE) 06/05/18 09:04 Urine RBC 0 - 2 /hpf (0-2) 06/05/18 09:04 Urine WBC 1 - 3 /hpf (0-6) 06/05/18 09:04 Ur Epithelial Cells 6 - 8 /hpf (0-5) 06/05/18 09:04 Urine Bacteria Many (NEG) 06/05/18 09:04 Urine Other Uyeast 06/05/18 09:04 Urine HCG, Qual Negative (NEGATIVE) 06/05/18 09:04 Stool Occult Blood Negative (NEGATIVE) 06/05/18 16:25 HIV 1&2 Ag/Ab, 4th Gen Nonreactive (Nonreactive) 06/06/18 07:30 Attending/Attestation - Attestation I have personally seen and examined this patient.: Yes I have fully participated in the care of the patient.: Yes I have reviewed all pertinent clinical information, including history, physical exam and plan: Yes Notes (Text): 06/09/18 13:15 27 year old female with past medical history of diverticulitis who presented with complaint of abdominal pain. CT abd/pelvis showed diverticulitis in splenic flexure with small pocket of extraluminal gas. She was started on iv antibiotics with improvement of symptoms. Her diet was advanced which she tolerated. GI and surgery were following the patient. Stool study was also positive for CDif antigen and she was on po vanco. Overall her symptoms improved. She is discharged home to follow up at [facility]. Discharged on po antibiotics. Follow up with GI and surgery. Susan De La Cruz MD Hospitalist.
== END 2018-06-08 15:11 | disposition home or self-care (01) | DRG 182 ==
LOC: ED 08:29 → ERH 12:29 → 5RNO 13:30
PROVIDERS: ADMIT Internal Medicine; ATTEND Internal Medicine
DX: K57.20 Diverticulitis of large intestine with perforation and abscess without bleeding (principal); R07.9 Chest pain, unspecified; E66.01 Morbid (severe) obesity due to excess calories; Z68.41 Body mass index [BMI] 40.0-44.9, adult

== ENCOUNTER 2018-07-31 22:48 | Inpatient (IN) | payer MEDICAID, OTHER ==
[2018-07-31 22:48] VITALS: BMI 41.1
--- NOTE | 2018-07-31 23:32 | ED PDOC ---
Arrival/HPI - General Chief Complaint: Abdominal Pain Time Seen by Provider: 07/31/18 23:01 Historian: Patient - History of Present Illness Narrative History of Present Illness (Text): 07/31/18 23:30 A 27 year old female, whose past medical history includes diverticulitis, recently treated 2 months prior, currently presents to the emergency department with a complaint of lower left abdominal discomfort since yesterday associated with occasional nausea. Patient notes that her symptoms have worsened since yesterday. She reports that she has a history of recent hospital admission for diverticulitis with microscopic perforation which she states was treated with IV antibiotics/no surgery. She states that her symptoms feel worse than her past episode 6 weeks ago. The patient denies fevers, chills, headache, dizziness , sore throat, cough, chest pain, shortness of breath, dyspnea on exertion, vomiting, diarrhea, neck/back pain, urinary/bowel changes or any other complaint. Time/Duration: Other (Yesterday) Symptom Onset: Gradual Symptom Course: Worsening Activities at Onset: Rest, Light Context: Home Past Medical History - Provider Review Nursing Documentation Reviewed: Yes - Infectious Disease Hx of Infectious Diseases: None - Cardiac Hx Cardiac Disorders: No - Pulmonary Hx Respiratory Disorders: No - Neurological Hx Neurological Disorder: No - HEENT Hx HEENT Disorder: No - Renal Hx Renal Disorder: No - Endocrine/Metabolic Hx Endocrine Disorders: No - Hematological/Oncological Hx Blood Disorders: No - Integumentary Hx Dermatological Disorder: No - Musculoskeletal/Rheumatological Hx Musculoskeletal Disorders: No - Gastrointestinal Hx Diverticulitis: Yes - Genitourinary/Gynecological Hx Genitourinary Disorders: No - Psychiatric Hx Psychophysiologic Disorder: No Hx Substance Use: Yes - Surgical History Other/Comment: b/l lower leg fasciotomy Family/Social History - Physician Review Nursing Documentation Reviewed: Yes Family/Social History: No Known Family HX Smoking Status: Never Smoked Hx Alcohol Use: Yes Frequency of alcohol use: Socially Hx Substance Use: Yes Substance used: marijuana Allergies/Home Meds Allergies/Adverse Reactions: Allergies No Known Allergies Allergy (Verified 08/01/18 02:44) Home Medications: Home Meds Medication Instructions Recorded Confirmed Etonogestrel [Nexplanon] 68 mg SUBD 06/05/18 Review of Systems - Physician Review All systems were reviewed & negative as marked: Yes - Review of Systems Constitutional: absent: Fevers ENT: absent: Sore Throat Respiratory: absent: SOB, Cough Cardiovascular: absent: Chest Pain, KATZ Gastrointestinal: Abdominal Pain (Lower left abdominal discomfort), Nausea. absent: Stool Changes, Diarrhea, Vomiting Genitourinary Female: absent: Urine Output Changes Musculoskeletal: absent: Back Pain, Neck Pain Neurological: absent: Headache, Dizziness Physical Exam Vital Signs Reviewed: Yes Vital Signs Temp Pulse Resp BP Pulse Ox 08/01/18 01:42 98.3 F 73 17 110/64 97 07/31/18 23:22 98.1 F 93 H 18 104/61 97 Temperature: Afebrile Blood Pressure: Normal Pulse: Tachycardic Respiratory Rate: Normal Appearance: Positive for: Well-Appearing, Non-Toxic, Comfortable Pain Distress: None Mental Status: Positive for: Alert and Oriented X 3 - Systems Exam Head: Present: Atraumatic, Normocephalic Pupils: Present: PERRL Extroacular Muscles: Present: EOMI Conjunctiva: Present: Normal Mouth: Present: Moist Mucous Membranes Neck: Present: Normal Range of Motion Respiratory/Chest: Present: Clear to Auscultation, Good Air Exchange. No: Respiratory Distress, Accessory Muscle Use Cardiovascular: Present: Regular Rate and Rhythm, Normal S1, S2. No: Murmurs Abdomen: Present: Tenderness (Left lower abdominal tenderneess on palpation), Normal Bowel Sounds ((+) Bowel Sounds ). No: Distention, Peritoneal Signs, Rebound, Guarding Back: Present: Normal Inspection Upper Extremity: Present: Normal Inspection. No: Cyanosis, Edema Lower Extremity: Present: Normal Inspection. No: Edema Neurological: Present: GCS=15, CN II-XII Intact, Speech Normal Skin: Present: Warm, Dry, Normal Color. No: Rashes Psychiatric: Present: Alert, Oriented x 3, Normal Insight, Normal Concentration Medical Decision Making ED Course and Treatment: 07/31/18 23:33 Impression: A 27 year old female presents to the emergency department with a complaint of 2 day duration, worsening left lower abdominal discomfort. Plan: -- Abdomen/Pelvis CT -- Urinalysis -- Labs -- Pepcid, Zofran, and IV Fluids -- Reassess and disposition Prior Visits: Notes and results from previous visits were reviewed. Progress Notes: EXAM: CT Abdomen and Pelvis With Intravenous Contrast Dictated and Authenticated by: Chase Mcnally MD 08/01/2018 2:45 AM Eastern Time ([place] & [place]b) IMPRESSION: 1. Findings compatible with acute diverticulitis of descending colon. Recommend endoscopy following resolution. 2. Incidental/non-acute findings are described above. 08/01/18 03:03: Case discussed in detail with medical and scientific illustrator and Dr. Byrd, who accept patient to the hospitalist's service. - Lab Interpretations Lab Results: 07/31/18 23:33 07/31/18 23:33 Lab Results 07/31/18 23:33: WBC 11.5 H D, RBC 4.19, Hgb 13.4, Hct 40.0, MCV 95.5, MCH 32.0, MCHC 33.5, RDW 12.4, Plt Count 248, MPV 10.2 07/31/18 23:33: Sodium 139, Potassium 3.7, Chloride 106, Carbon Dioxide 24, Anion Gap 13, BUN 12, Creatinine 0.7, Est GFR ( Amer) > 60, Est GFR (Non- Af Amer) > 60, Random Glucose 113 H, Calcium 9.3, Total Bilirubin 0.9, AST 36 D , ALT 66 H, Alkaline Phosphatase 58, Total Protein 7.4, Albumin 4.3, Globulin 3.0, Albumin/Globulin Ratio 1.4, Lipase 66 07/31/18 23:33: Urine Color Yellow, Urine Appearance Clear, Urine pH 6.0, Ur Specific [place] >= 1.030, Urine Protein Trace H, Urine Glucose (UA) Negative, Urine Ketones Trace H, Urine Blood Negative, Urine Nitrate Negative, Urine Bilirubin Negative, Urine Urobilinogen 0.2, Ur Leukocyte Esterase Negative, Urine RBC 0 - 2, Urine WBC 1 - 3, Ur Epithelial Cells 3 - 4, Urine Bacteria Trace, Urine HCG, Qual Negative I have reviewed the lab results: Yes - RAD Interpretation Radiology Orders: 07/31/18 23:28 ABD & PELVIS IV CONTRAST ONLY [CT] Stat - Medication Orders Current Medication Orders: Sodium Chloride (Sodium Chloride 0.9%) 1,000 mls @ 100 mls/hr IV .Q10H JUVE Last Admin: 07/31/18 23:43 Dose: 100 mls/hr eMAR Start Stop Document 07/31/18 23:43 GMD (Rec: 07/31/18 23:43 GMD [id number]) Intravenous Solution Start Date 07/31/18 Start Time 23:43 Ciprofloxacin (Cipro 400mg/200ml Dsw) 400 mg in 200 mls @ 133.333 mls/hr IV STAT STA PRN Reason: Protocol Stop: 08/01/18 04:17 Metronidazole (Flagyl) 500 mg in 100 mls @ 100 mls/hr IVPB STAT STA PRN Reason: Protocol Stop: 08/01/18 03:49 Discontinued Medications Famotidine (Pepcid) 20 mg IVP STAT STA Stop: 07/31/18 23:30 Last Admin: 07/31/18 23:43 Dose: 20 mg IVP Administration Document 07/31/18 23:43 GMD (Rec: 07/31/18 23:43 GMD [id number]) Charges for Administration # of IVP Administrations 1 Ketorolac Tromethamine (Toradol) 30 mg IVP ONCE ONE Stop: 08/01/18 02:18 Last Admin: 08/01/18 02:25 Dose: 30 mg MAR Pain Assessment Document 08/01/18 02:25 Seda (Rec: 08/01/18 02:25 [facility] [id number]) Pain Reassessment Is this a pain reassessment? No Sleep Is patient sleeping during reassessment? No Presence of Pain Presence of Pain Yes Pain Scale Used Pain Scale Used Numeric Location Pain Location Body Site Abdomen Description Description Chronic Intensity of Pain at present 6 Acceptable Level of Pain 0 Pain Behavior Rubbing Site Aggravating Factors ADL's IVP Administration Document 08/01/18 02:25 Seda (Rec: 08/01/18 02:25 Seda [id number]) Charges for Administration # of IVP Administrations 1 Morphine Sulfate (Morphine) 2 mg IVP STAT STA Stop: 08/01/18 02:51 Ondansetron HCl (Zofran Inj) 4 mg IVP ONCE ONE Stop: 07/31/18 23:30 Last Admin: 07/31/18 23:43 Dose: 4 mg IVP Administration Document 07/31/18 23:43 GMD (Rec: 07/31/18 23:43 D [id number]) Charges for Administration # of IVP Administrations 1 - Scribe Statement The provider has reviewed the documentation as recorded by the Scribe Shani Adrian Provider Scribe Attestation: All medical record entries made by the Liam were at my direction and personally dictated by me. I have reviewed the chart and agree that the record accurately reflects my personal performance of the history, physical exam, medical decision making, and the department course for this patient. I have also personally directed, reviewed, and agree with the discharge instructions and disposition. Disposition/Present on Arrival - Present on Arrival Any Indicators Present on Arrival: No History of DVT/PE: No History of Uncontrolled Diabetes: No Urinary Catheter: No History of Decub. Ulcer: No History Surgical Site Infection Following: None - Disposition Have Diagnosis and Disposition been Completed?: Yes Diagnosis: Acute diverticulitis Disposition: HOSPITALIZED Disposition Time: 03:05 Condition: STABLE Forms: [employer] ([place])
[2018-07-31] MEDS: Sodium Chloride 0.9% 1,000 ML IV SCH (23:43)
[2018-07-31 23:50] LABS: HEMOGLOBIN 13.4 g/dL (12.0-16.0); MEAN CELL VOLUME 95.5 fl (80.0-105.0); MEAN CORPUSCULAR HGB CONC 33.5 g/dl (31.0-37.0); MEAN PLATELET VOLUME 10.2 fl (7.0-11.0); RBC 4.19 10^6/uL (3.5-6.1); RED CELL DISTRIBUTION WIDTH 12.4 % (11.5-14.5); WHITE BLOOD COUNT 11.5 10^3/ul (4.5-11.0)
[2018-07-31 23:59] LABS: ALB/GLOB RATIO 1.4 (1.1-1.8); ALBUMIN 4.3 g/dL (3.0-4.8); ALT/SGPT 66 U/L (7-56); AST/SGOT 36 U/L (14-36); BLOOD UREA NITROGEN 12 mg/dL (7-21); CALCIUM 9.3 mg/dL (8.4-10.5); GFR NON-AFRICAN AMERICAN > 60; LIPASE 66 U/L (23-300); URINE APPEARANCE CLEAR (CLEAR); URINE BILIRUBIN NEGATIVE (NEGATIVE); URINE BLOOD NEGATIVE (NEGATIVE); URINE COLOR YELLOW (YELLOW); URINE GLUCOSE (UA) NEGATIVE (NEGATIVE); URINE LEUKOCYTE ESTERASE NEGATIVE Leu/uL (NEGATIVE); URINE PROTEIN TRACE mg/dL (<30 mg/dL); URINE UROBILINOGEN 0.2 E.U./dL (<1 E.U./dL)
[2018-08-01 00:03] LABS: HCG,QUALITATIVE URINE NEGATIVE (NEGATIVE)
[2018-08-01 00:13] LABS: URINE BACTERIA TRACE (NEG); URINE RBC 0 - 2 /hpf (0-2)
[2018-08-01] MEDS ORDERED: Ciprofloxacin 400mg/200ml D5W 400 MG/200 ML BAG IV STA (02:48)
[2018-08-01] MEDS ORDERED: metroNIDAZOLE IV 500 mg/100 ml 500 MG/100 ML BAG IVPB STA (02:50)
[2018-08-01] MEDS ORDERED: Morphine 2 mg/ml ISec IVP STA (02:50)
--- NOTE | 2018-08-01 03:47 | CP.PCM.HP ---
History of Present Illness - History of Present Illness History of Present Illness: Arturo Nguyne DO PGY-1, H&P for hospitalist CC: abdominal pain This is a 27 year old female with PMH of diverticultis (admission for diverticulitis 05/2018) who presented with abdominal pain for the past 2 days. Pt states that she was feeling fine after her discharge 2 months ago, but the abdominal pain returned yesterday, worsening today after dinner. Pain is described as left lower abdominal discomfort, associated with nausea prior to arrival. Pt denies headache, visual changes, fever, chills, chest pain, sob, v/d , hematemasis, hematochezia, melena, recent new foods, vaginal complaints. Pt states that her menstrual period is starting today. A 12-point ROS was reviewed and is otherwise unremarkable. GI: Dr. Mark Jacobo ([facility]). Pt has a f/u appt next week. PMHx: Diverticulitis PSHx: bilateral lower leg fasciotomy due to sports injury Allergies: NKDA Social: denies tobacco use, etoh use, illicit drug use Meds: Probiotic and Metamucil, Nexplanon implantable control Present on Admission - Present on Admission Any Indicators Present on Admission: No Review of Systems - Review of Systems All systems: reviewed and no additional remarkable complaints except (as per HPI ) Past Patient History - Infectious Disease Hx of Infectious Diseases: None - Past Medical History & Family History Past Medical History?: No - Past Social History Smoking Status: Never Smoked - CARDIAC Hx Cardiac Disorders: No - PULMONARY Hx Respiratory Disorders: No - NEUROLOGICAL Hx Neurological Disorder: No - HEENT Hx HEENT Problems: No - RENAL Hx Chronic Kidney Disease: No - ENDOCRINE/METABOLIC Hx Endocrine Disorders: No - HEMATOLOGICAL/ONCOLOGICAL Hx Blood Disorders: No - INTEGUMENTARY Hx Dermatological Problems: No - MUSCULOSKELETAL/RHEUMATOLOGICAL Hx Musculoskeletal Disorders: No - GASTROINTESTINAL Hx Diverticulitis: Yes - GENITOURINARY/GYNECOLOGICAL Hx Genitourinary Disorders: No - PSYCHIATRIC Hx Psychophysiologic Disorder: No Hx Substance Use: Yes - SURGICAL HISTORY Other/Comment: b/l lower leg fasciotomy Meds Allergies/Adverse Reactions: Allergies Allergy/AdvReac Type Severity Reaction Status Date / Time No Known Allergies Allergy Verified 08/01/18 02:44 Physical Exam - Constitutional Appears: Non-toxic, No Acute Distress - Head Exam Head Exam: ATRAUMATIC, NORMAL INSPECTION, NORMOCEPHALIC - Eye Exam Eye Exam: EOMI, PERRL. absent: Conjunctival injection, Scleral icterus - ENT Exam ENT Exam: Mucous Membranes Moist - Neck Exam Neck exam: Positive for: Normal Inspection - Respiratory Exam Respiratory Exam: NORMAL BREATHING PATTERN. absent: Rales, Rhonchi, Wheezes, Respiratory Distress - Cardiovascular Exam Cardiovascular Exam: REGULAR RHYTHM, +S1, +S2 - GI/Abdominal Exam GI & Abdominal Exam: Normal Bowel Sounds (in all 4 quadrants), Soft, Tenderness (moderate LLQ tenderness; (-) RUQ tenderness). absent: Hernia, Organomegaly, Rebound, Rigid - Back Exam Back exam: NORMAL INSPECTION. absent: CVA tenderness (L), CVA tenderness (R) - Neurological Exam Neurological exam: Alert, Oriented x3 - Psychiatric Exam Psychiatric exam: Normal Affect, Normal Mood - Skin Skin Exam: Dry, Normal Color, Warm Results - Vital Signs Recent Vital Signs: Last Vital Signs Temp 98.3 F 08/01/18 01:42 Pulse 73 08/01/18 01:42 Resp 17 08/01/18 01:42 BP 110/64 08/01/18 01:42 Pulse Ox 97 08/01/18 01:42 - Labs Result Diagrams: 07/31/18 23:33 07/31/18 23:33 Assessment & Plan - Assessment and Plan (Free Text) Assessment: This is a 27 year old female with PMH of diverticultis (admission for diverticulitis 05/2018) who presented with worsening abdominal pain over the past 2 days, associated with nausea. Abdominal CT shows acute diverticulitis of descending colon. In the ED, pt received morphine 2 mg IVP, zofran 4 mg IVP, Pepcid 20 mg IVP, Metronidazole and Ciprofloxacin. Pt admitted to med/surg inpatient. Plan: 1. Acute diverticulitis - Abdominal CT shows acute diverticulitis of descending colon. Recommend endoscopy following resolution.(see full report) - leukocytosis - place pt NPO - morphine 2 mg IVP Q6H PRN - Zofran 2 mg IVP Q6H PRN - NS IVF at 100 mL/hr - Metronidazole 500 mg IV Q8H - Ciprofloxacin 400 mg IV Q12H - f/u CBC in am - GI consulted, recs appreciated 2. Transaminitis - f/u CMP in am - GI consulted 3. PPX/Diet - Pepcid for GI, SCDs for DVT - NPO Case was reviewed and discussed with attending physician, Dr. Kayode Byrd
[2018-08-01] MEDS ORDERED: metroNIDAZOLE IV 500 mg/100 ml 500 MG/100 ML BAG IVPB SCH (06:00)
[2018-08-01 07:33] LABS: HEMOGLOBIN 12.2 g/dL (12.0-16.0); MEAN CELL VOLUME 95.9 fl (80.0-105.0); MEAN CORPUSCULAR HEMOGLOBIN 31.4 pg (25.0-35.0); MEAN CORPUSCULAR HGB CONC 32.8 g/dl (31.0-37.0); MEAN PLATELET VOLUME 10.1 fl (7.0-11.0); RBC 3.88 10^6/uL (3.5-6.1); RED CELL DISTRIBUTION WIDTH 12.5 % (11.5-14.5); WHITE BLOOD COUNT 10.2 10^3/ul (4.5-11.0)
[2018-08-01 07:53] LABS: BLOOD UREA NITROGEN 11 mg/dL (7-21); CALCIUM 8.5 mg/dL (8.4-10.5); GFR NON-AFRICAN AMERICAN > 60
--- NOTE | 2018-08-01 08:53 | CT ---
Date of service: 08/01/2018 PROCEDURE: CT Abdomen and Pelvis with contrast HISTORY: llq abdom. pain/past hx.diverticulitis COMPARISON: Comparison is made to the previous study dated 06/05/2018 TECHNIQUE: Contrast dose: 150 mL of Omnipaque 350 intravenously. Axial and reformatted coronal and sagittal CT images of the abdomen and pelvis were obtained after IV contrast administration. Radiation dose: Total exam DLP = 1536.19 mGy-cm. This CT exam was performed using one or more of the following dose reduction techniques: Automated exposure control, adjustment of the mA and/or kV according to patient size, and/or use of iterative reconstruction technique. FINDINGS: LOWER THORAX: Unremarkable. LIVER: Moderate hepatic steatosis is again noted. GALLBLADDER AND BILE DUCTS: Unremarkable. PANCREAS: Unremarkable. No gross lesion or ductal dilatation. SPLEEN: Unremarkable. ADRENALS: Unremarkable. No mass. KIDNEYS AND URETERS: Unremarkable. No hydronephrosis. No solid mass. VASCULATURE: Unremarkable. No aortic aneurysm. BOWEL: Scattered colonic diverticulosis are again noted. There are inflammatory changes surrounding the proximal descending colon suggestive of acute diverticulitis. No evidence of small bowel obstruction. APPENDIX: Normal appendix. PERITONEUM: Unremarkable. No free fluid. No free air. LYMPH NODES: Unremarkable. No enlarged lymph nodes. BLADDER: Unremarkable. REPRODUCTIVE: Unremarkable. BONES: No acute fracture. OTHER FINDINGS: None. IMPRESSION: Colonic diverticulosis and findings suggestive of acute diverticulitis at the proximal descending colon. Findings similar to the previous study dated 06/05/2018. If clinically warranted further evaluation by endoscopy following the resolution of the acute diverticulitis may be obtained. Additional findings as described above. Preliminary report was submitted by virtual Radiology.
[2018-08-01] MEDS ORDERED: Ciprofloxacin 200mg/100ml D5W 100 ML IVPB SCH (10:00)
[2018-08-01] MEDS: Morphine 2 mg/ml ISec IVP PRN ×2 (10:22→21:17)
--- NOTE | 2018-08-01 12:28 | CP.PCM.CON ---
<Jose F Dumas - Last Filed: 08/01/18 12:21> History of Present Illness - History of Present Illness History of Present Illness: GI Fellow PGY4, consult note. Megan Porter is a 27F presenting with recurrent diverticulitis. She had an episode 2 months ago and had 14day abx course. Symptoms resolved. She followed up with GI physician and had colonoscopy 1 month ago. She has not been on any special diet. Today, she has recurrent pain in the LLQ of moderate severity. Denies fever, blood in stool, nausea, vomiting. This is her 3rd episode of diverticulitis in 5 years. Past Patient History - Infectious Disease Hx of Infectious Diseases: None - Past Medical History & Family History Past Medical History?: No - Past Social History Smoking Status: Never Smoked - CARDIAC Hx Cardiac Disorders: No - PULMONARY Hx Respiratory Disorders: No - NEUROLOGICAL Hx Neurological Disorder: No - HEENT Hx HEENT Problems: No - RENAL Hx Chronic Kidney Disease: No - ENDOCRINE/METABOLIC Hx Endocrine Disorders: No - HEMATOLOGICAL/ONCOLOGICAL Hx Blood Disorders: No - INTEGUMENTARY Hx Dermatological Problems: No - MUSCULOSKELETAL/RHEUMATOLOGICAL Hx Musculoskeletal Disorders: No - GASTROINTESTINAL Hx Diverticulitis: Yes - GENITOURINARY/GYNECOLOGICAL Hx Genitourinary Disorders: No - PSYCHIATRIC Hx Psychophysiologic Disorder: No Hx Substance Use: Yes - SURGICAL HISTORY Other/Comment: b/l lower leg fasciotomy Meds Allergies/Adverse Reactions: Allergies Allergy/AdvReac Type Severity Reaction Status Date / Time No Known Allergies Allergy Verified 08/01/18 02:44 - Medications Medications: Current Medications Famotidine (Pepcid) 20 mg IVP DAILY [facility] Last Admin: 08/01/18 10:17 Dose: 20 mg Sodium Chloride (Sodium Chloride 0.9%) 1,000 mls @ 100 mls/hr IV .Q10H JUVE Last Admin: 07/31/18 23:43 Dose: 100 mls/hr Metronidazole (Flagyl) 500 mg in 100 mls @ 100 mls/hr IVPB Q8 JUVE PRN Reason: Protocol Last Admin: 08/01/18 06:54 Dose: 100 mls/hr Ciprofloxacin (Cipro 400mg/200ml Dsw) 400 mg in 200 mls @ 133.3 mls/hr IVPB Q12 JUVE PRN Reason: Protocol Stop: 08/01/18 23:31 Morphine Sulfate (Morphine) 2 mg IVP Q6H PRN PRN Reason: Pain, severe (8-10) Last Admin: 08/01/18 10:22 Dose: 2 mg Ondansetron HCl (Zofran Inj) 4 mg IVP Q6H PRN PRN Reason: Nausea/Vomiting Physical Exam - Constitutional Appears: Non-toxic, No Acute Distress - Head Exam Head Exam: NORMAL INSPECTION - Eye Exam Eye Exam: EOMI, Normal appearance - ENT Exam ENT Exam: Mucous Membranes Moist - Respiratory Exam Respiratory Exam: Clear to Auscultation Bilateral, NORMAL BREATHING PATTERN - Cardiovascular Exam Cardiovascular Exam: REGULAR RHYTHM, +S1, +S2 - GI/Abdominal Exam GI & Abdominal Exam: Normal Bowel Sounds, Soft, Tenderness. absent: Organomegaly - Extremities Exam Extremities exam: Positive for: normal inspection - Back Exam Back exam: NORMAL INSPECTION - Neurological Exam Neurological exam: Alert, CN II-XII Intact, Oriented x3 - Psychiatric Exam Psychiatric exam: Normal Affect, Normal Mood - Skin Skin Exam: Dry, Normal Color Results - Vital Signs Recent Vital Signs: Last Vital Signs Temp 98.6 F 08/01/18 06:00 Pulse 77 08/01/18 06:00 Resp 20 08/01/18 06:00 BP 99/56 L 08/01/18 06:00 Pulse Ox 96 08/01/18 06:00 - Labs Result Diagrams: 08/01/18 07:00 08/01/18 07:00 Labs: Laboratory Results - last 24 hr 08/01/18 08/01/18 07:00 07:00 WBC 10.2 RBC 3.88 Hgb 12.2 Hct 37.2 MCV 95.9 MCH 31.4 MCHC 32.8 RDW 12.5 Plt Count 208 MPV 10.1 Sodium 138 Potassium 3.8 Chloride 107 Carbon Dioxide 24 Anion Gap 10 BUN 11 Creatinine 0.7 Est GFR ( Amer) > 60 Est GFR (Non-Af Amer) > 60 Random Glucose 94 Calcium 8.5 Assessment & Plan - Assessment and Plan (Free Text) Assessment: 27F with recurrent diverticulitis #Acute diverticulitis, recurrent, uncomplicated PLAN: -Continue Abx -Okay to start clear liquid diet, advance to low residue as tolerated. -Recommend establishing care with surgeon as this colon may need to be removed if same problem continues (2nd episode in 2 months). -Follow up with primary GI physician -CMP in AM - Date & Time Date: 08/01/18 Time: 12:33 <Jamal Savage V - Last Filed: 08/02/18 00:39> Meds - Medications Medications: Current Medications Famotidine (Pepcid) 20 mg IVP DAILY [facility] Last Admin: 08/01/18 10:17 Dose: 20 mg Sodium Chloride (Sodium Chloride 0.9%) 1,000 mls @ 100 mls/hr IV .Q10H [facility] Last Admin: 07/31/18 23:43 Dose: 100 mls/hr Piperacillin Sod/Tazobactam Sod (Zosyn 3.375 In Ns 100ml) 100 mls @ 200 mls/hr IVPB Q6 JUVE PRN Reason: Protocol Stop: 08/08/18 18:01 Last Admin: 08/01/18 23:48 Dose: 200 mls/hr Morphine Sulfate (Morphine) 2 mg IVP Q6H PRN PRN Reason: Pain, severe (8-10) Last Admin: 08/01/18 21:17 Dose: 2 mg Ondansetron HCl (Zofran Inj) 4 mg IVP Q6H PRN PRN Reason: Nausea/Vomiting Results - Vital Signs Recent Vital Signs: Last Vital Signs Temp 100.7 F H 08/01/18 22:34 Pulse 80 08/01/18 22:34 Resp 16 08/01/18 22:34 BP 111/74 08/01/18 22:34 Pulse Ox 97 08/01/18 22:34 - Labs Result Diagrams: 08/01/18 07:00 08/01/18 07:00 Labs: Laboratory Results - last 24 hr 08/01/18 08/01/18 07:00 07:00 WBC 10.2 RBC 3.88 Hgb 12.2 Hct 37.2 MCV 95.9 MCH 31.4 MCHC 32.8 RDW 12.5 Plt Count 208 MPV 10.1 Sodium 138 Potassium 3.8 Chloride 107 Carbon Dioxide 24 Anion Gap 10 BUN 11 Creatinine 0.7 Est GFR ( Amer) > 60 Est GFR (Non-Af Amer) > 60 Random Glucose 94 Calcium 8.5 Attending/Attestation - Attestation I have personally seen and examined this patient.: Yes I have fully participated in the care of the patient.: Yes I have reviewed all pertinent clinical information: Yes Notes (Text): This is an addendum to GI consult report dictated by the GI Fellow.The patient was seen and examined earlier. Medical records, lab studies, imagings were reviewed. Last 24 hours events reviewed. Agreed with the above treatment plan as outlined in GI Fellow 's notes with the addition of the following This patient admitted with reoccuring diverticolitis sp colonoscopy On examination patient has tenderness in lower left quadrant complete the antibiotics and increase hydration 08/02/18 00:36
--- NOTE | 2018-08-01 17:22 | CP.PCM.CON ---
History of Present Illness - History of Present Illness History of Present Illness: 27 year old female with PMH of diverticulitis, morbid obesity with BMI 41, history of lower leg fasciotomy came in to [facility] [place] complaining of abdominal pain for the past 2 days, associated with nausea but no vomiting or diarrhea, denies hematemesis, melena or hematochezia, denies fever or chills, no headache or dizziness, no chest pain, no SOB, no dysuria. The abdominal pain is left sided. As per the patient, she was admitted 2 months ago for sigmoid diverticulitis and , treated for 2 weeks with antibiotics and had colonoscopy done 2 weeks ago which was apparently normal. CT A/P done in the ED is showing descending colon diverticulitis. Infectious Diseases consult is requested to further evaluate and manage. Review of Systems - Review of Systems All systems: reviewed and no additional remarkable complaints except (as per HPI ) Past Patient History - Infectious Disease Hx of Infectious Diseases: None - Past Medical History & Family History Past Medical History?: No - Past Social History Smoking Status: Never Smoked - CARDIAC Hx Cardiac Disorders: No - PULMONARY Hx Respiratory Disorders: No - NEUROLOGICAL Hx Neurological Disorder: No - HEENT Hx HEENT Problems: No - RENAL Hx Chronic Kidney Disease: No - ENDOCRINE/METABOLIC Hx Endocrine Disorders: No - HEMATOLOGICAL/ONCOLOGICAL Hx Blood Disorders: No - INTEGUMENTARY Hx Dermatological Problems: No - MUSCULOSKELETAL/RHEUMATOLOGICAL Hx Musculoskeletal Disorders: No - GASTROINTESTINAL Hx Diverticulitis: Yes - GENITOURINARY/GYNECOLOGICAL Hx Genitourinary Disorders: No - PSYCHIATRIC Hx Psychophysiologic Disorder: No Hx Substance Use: Yes - SURGICAL HISTORY Other/Comment: b/l lower leg fasciotomy Meds Allergies/Adverse Reactions: Allergies Allergy/AdvReac Type Severity Reaction Status Date / Time No Known Allergies Allergy Verified 08/01/18 02:44 - Medications Medications: Current Medications Famotidine (Pepcid) 20 mg IVP DAILY [facility] Last Admin: 08/01/18 10:17 Dose: 20 mg Sodium Chloride (Sodium Chloride 0.9%) 1,000 mls @ 100 mls/hr IV .Q10H JUVE Last Admin: 07/31/18 23:43 Dose: 100 mls/hr Piperacillin Sod/Tazobactam Sod (Zosyn 3.375 In Ns 100ml) 100 mls @ 200 mls/hr IVPB Q6 JUVE PRN Reason: Protocol Stop: 08/08/18 18:01 Morphine Sulfate (Morphine) 2 mg IVP Q6H PRN PRN Reason: Pain, severe (8-10) Last Admin: 08/01/18 10:22 Dose: 2 mg Ondansetron HCl (Zofran Inj) 4 mg IVP Q6H PRN PRN Reason: Nausea/Vomiting Physical Exam - Constitutional Appears: No Acute Distress, Chronically Ill - Head Exam Head Exam: NORMAL INSPECTION - Neck Exam Neck exam: Negative for: Meningismus - Respiratory Exam Respiratory Exam: Decreased Breath Sounds - Cardiovascular Exam Cardiovascular Exam: +S1, +S2 - GI/Abdominal Exam GI & Abdominal Exam: Soft, Tenderness (left side, mild). absent: Distended, Guarding, Rebound, Rigid Results - Vital Signs Recent Vital Signs: Last Vital Signs Temp 98.6 F 08/01/18 06:00 Pulse 77 08/01/18 06:00 Resp 20 08/01/18 06:00 BP 99/56 L 08/01/18 06:00 Pulse Ox 96 08/01/18 06:00 - Labs Result Diagrams: 08/01/18 07:00 08/01/18 07:00 Labs: Laboratory Results - last 24 hr 08/01/18 08/01/18 07:00 07:00 WBC 10.2 RBC 3.88 Hgb 12.2 Hct 37.2 MCV 95.9 MCH 31.4 MCHC 32.8 RDW 12.5 Plt Count 208 MPV 10.1 Sodium 138 Potassium 3.8 Chloride 107 Carbon Dioxide 24 Anion Gap 10 BUN 11 Creatinine 0.7 Est GFR ( Amer) > 60 Est GFR (Non-Af Amer) > 60 Random Glucose 94 Calcium 8.5 Assessment & Plan - Assessment and Plan (Free Text) Plan: Assessment Acute descending colon diverticulitis in this patient history of diverticulitis morbid obesity with BMI 41 history of lower leg fasciotomy Plan Will start patient on Zosyn and will monitor clinically follow up advancement of diet and further plans of GI
[2018-08-01] MEDS: Piperacillin/Tazobact 3.375 gm 100 ML IVPB SCH ×2 (18:06→23:48)
[2018-08-01] MEDS ORDERED: Ciprofloxacin 400mg/200ml D5W 400 MG/200 ML BAG IVPB SCH (22:00)
[2018-08-02] MEDS ORDERED: Morphine 2 mg/ml ISec IVP STA (00:41)
[2018-08-02] MEDS: Piperacillin/Tazobact 3.375 gm 100 ML IVPB SCH ×3 (06:16→18:13)
--- NOTE | 2018-08-02 06:39 | CP.PCM.PN ---
<Masha Stewart - Last Filed: 08/02/18 17:14> Subjective - Date & Time of Evaluation Date of Evaluation: 08/02/18 Time of Evaluation: 07:50 - Subjective Subjective: PGY-1 Masha Stewart D.O. Medicine progress note for Dr. Hardin's service: Patient is seen and examined this morning. Fever of 100.7 overnight; resolved this morning. She is still complaining of abdominal pain but improved from yesterday. No BM since admission. Tolerating food without nausea or vomiting. Objective - Vital Signs/Intake and Output Vital Signs (last 24 hours): Temp Pulse Resp BP Pulse Ox 100.7 F H 80 16 111/74 97 08/01/18 22:34 08/01/18 22:34 08/01/18 22:34 08/01/18 22:34 08/01/18 22:34 - Medications Medications: Current Medications Famotidine (Pepcid) 20 mg IVP DAILY [facility] Last Admin: 08/01/18 10:17 Dose: 20 mg Sodium Chloride (Sodium Chloride 0.9%) 1,000 mls @ 100 mls/hr IV .Q10H [facility] Last Admin: 07/31/18 23:43 Dose: 100 mls/hr Piperacillin Sod/Tazobactam Sod (Zosyn 3.375 In Ns 100ml) 100 mls @ 200 mls/hr IVPB Q6 JUVE PRN Reason: Protocol Stop: 08/08/18 18:01 Last Admin: 08/02/18 06:16 Dose: 200 mls/hr Morphine Sulfate (Morphine) 2 mg IVP Q6H PRN PRN Reason: Pain, severe (8-10) Last Admin: 08/01/18 21:17 Dose: 2 mg Ondansetron HCl (Zofran Inj) 4 mg IVP Q6H PRN PRN Reason: Nausea/Vomiting - Labs Labs: 08/01/18 07:00 08/01/18 07:00 - Constitutional Appears: Non-toxic, No Acute Distress - Head Exam Head Exam: ATRAUMATIC, NORMAL INSPECTION, NORMOCEPHALIC - Eye Exam Eye Exam: EOMI, Normal appearance - ENT Exam ENT Exam: Mucous Membranes Moist, Normal Exam - Neck Exam Neck Exam: Normal Inspection - Respiratory Exam Respiratory Exam: Clear to Ausculation Bilateral, NORMAL BREATHING PATTERN - Cardiovascular Exam Cardiovascular Exam: REGULAR RHYTHM, +S1, +S2 - GI/Abdominal Exam GI & Abdominal Exam: Soft, Tenderness (LLQ), Hypoactive Bowel Sounds. absent: Distended, Firm - Rectal Exam Rectal Exam: Deferred - Extremities Exam Extremities Exam: Normal Inspection - Back Exam Back Exam: NORMAL INSPECTION - Neurological Exam Neurological Exam: Alert, Awake, CN II-XII Intact, Oriented x3 - Psychiatric Exam Psychiatric exam: Normal Affect, Normal Mood - Skin Skin Exam: Dry, Normal Color, Warm Assessment and Plan - Assessment and Plan (Free Text) Assessment: 27 year old female with PMH of diverticultis (admission for diverticulitis 2017) who presented with worsening abdominal pain over the past 2 days, associated with nausea. Abdominal CT shows acute diverticulitis of descending colon. Plan: Acute diverticulitis- h/o 2 previous episodes - Abdominal CT: acute diverticulitis of descending colon. - leukocytosis 11.4 - Febrile 08/01 100.7 - morphine 2 mg IVP Q6H PRN - Zofran 2 mg IVP Q6H PRN - NS IVF at 100 mL/hr - Discontinue Metronidazole 500 mg IV Q8H - Discontinue Ciprofloxacin 400 mg IV Q12H - Start Zosyn 3,375 mg IV q6hrs x7 days (started 08/01) - ID consulted- Zosyn x7 days - GI consulted- outpatient colonoscopy in 6-8 weeks - Gen surg consulted- encourage OOB to chair Transaminitis, resolved - F/u bilirubin - GI consulted IVF: NS @ 100 Diet: clear liquids GI ppx: Pepcid 20 mg IV daily VTE ppx: SCDs Code status: full code Case discussed with attending, Dr. Hardin. <Sandra Hardin R - Last Filed: 08/03/18 11:59> Objective - Vital Signs/Intake and Output Vital Signs (last 24 hours): Temp Pulse Resp BP Pulse Ox 98.5 F 71 20 103/67 95 08/03/18 06:00 08/03/18 06:00 08/03/18 06:00 08/03/18 06:00 08/03/18 06:00 Intake and Output: 08/03/18 08/03/18 06:59 18:59 Intake Total 780 Balance 780 - Medications Medications: Current Medications Famotidine (Pepcid) 20 mg IVP DAILY [facility] Last Admin: 08/03/18 11:22 Dose: 20 mg Sodium Chloride (Sodium Chloride 0.9%) 1,000 mls @ 100 mls/hr IV .Q10H [facility] Last Admin: 08/02/18 18:09 Dose: 100 mls/hr Piperacillin Sod/Tazobactam Sod (Zosyn 3.375 In Ns 100ml) 100 mls @ 200 mls/hr IVPB Q6 JUVE PRN Reason: Protocol Stop: 08/08/18 18:01 Last Admin: 08/03/18 11:21 Dose: 200 mls/hr Morphine Sulfate (Morphine) 2 mg IVP Q6H PRN PRN Reason: Pain, severe (8-10) Last Admin: 08/03/18 11:21 Dose: 2 mg Ondansetron HCl (Zofran Inj) 4 mg IVP Q6H PRN PRN Reason: Nausea/Vomiting - Labs Labs: 08/03/18 07:00 08/03/18 07:00 Attending/Attestation - Attestation I have personally seen and examined this patient.: Yes I have fully participated in the care of the patient.: Yes I have reviewed all pertinent clinical information, including history, physical exam and plan: Yes Notes (Text): Patient seen and examined by me at 12PM with resident 08/02/18. Case including HPI, physical exam, and assessment and plan discussed with resident. Agree with above with following additions/corrections. Patient is a 27-year-old female with past medical history significant for diverticulitis the presented to the emergency room with left lower quadrant abdominal pain. Patient states that she is feeling better today. Abdominal pain has improved. Patient denies any bowel movements. Patient is tolerating liquid diet. She denies any nausea or vomiting. No chest pain or shortness of breath. No headaches or dizziness. No chills. No dysuria. Patient did have one isolated low -grade temperature. Physical exam: General: Awake and alert lying in bed in acute distress. HEENT: Normocephalic atraumatic. Pupils equal reactive. No scleral icterus. Oropharynx is pink and moist. Neck is supple. Cardiovascular: Normal rhythm. Normal S1, S2. No murmurs, rubs, or gallops appreciated Pulmonary: Normal respiratory effort. No rhonchi, rales or wheezing appreciated. Gastrointestinal: Soft, nondistended. Positive left lower quadrant tenderness. Positive bowel sounds all 4 quadrants, no guarding. Obese abdomen. Unable to examine for any organomegaly secondary to body habitus. Musculoskeletal: Normal range of motion all extremities. No calf tenderness. No edema appreciated. No CVA tenderness. Central nervous system: AAO 3. CN2-12 grossly intact. Dermatologic: Skin warm and dry Assessment and plan: Patient is a 27-year-old female with past medical history significant for diverticulitis the presented to the emergency room with left lower quadrant abdominal pain. 1. Acute diverticulitis. CT abdomen and pelvis per radiologist shows colonic diverticulosis and findings suggestive of acute diverticulitis at the proximal descending colon, findings similar to previous study dated 06/05/2018. GI following, recommendations appreciated. ID consulted, recommendations appreciated. Patient placed on Zosyn. Patient did have one episode of low-grade temp. Patient did have leukocytosis today. Continue with liquid diet. Continue with pain management. Monitor for fevers. We'll consult surgery as this is third episode of diverticulitis for patient. 2. Leukocytosis. Secondary to #1. Continue with Zosyn. Continue to monitor. 3. Transaminitis. Resolved. Continue monitor. 4. GI/DVT prophylaxis. Pepcid and ambulation. Case discussed in detail with the patient regarding current diagnosis and treatment plan.
[2018-08-02 08:13] LABS: HEMOGLOBIN 12.8 g/dL (12.0-16.0); MEAN CELL VOLUME 95.5 fl (80.0-105.0); MEAN CORPUSCULAR HEMOGLOBIN 32.3 pg (25.0-35.0); MEAN CORPUSCULAR HGB CONC 33.9 g/dl (31.0-37.0); MEAN PLATELET VOLUME 10.1 fl (7.0-11.0); RBC 3.96 10^6/uL (3.5-6.1); RED CELL DISTRIBUTION WIDTH 12.3 % (11.5-14.5); WHITE BLOOD COUNT 11.4 10^3/ul (4.5-11.0)
[2018-08-02 08:44] LABS: ALB/GLOB RATIO 1.3 (1.1-1.8); ALBUMIN 3.8 g/dL (3.0-4.8); ALT/SGPT 44 U/L (7-56); AST/SGOT 30 U/L (14-36); BLOOD UREA NITROGEN 5 mg/dL (7-21); CALCIUM 8.4 mg/dL (8.4-10.5); GFR NON-AFRICAN AMERICAN > 60
[2018-08-02] MEDS: Morphine 2 mg/ml ISec IVP PRN ×3 (10:23→21:02)
--- NOTE | 2018-08-02 11:32 | CP.PCM.PN ---
<Jose F Dumas - Last Filed: 08/02/18 11:29> Subjective - Date & Time of Evaluation Date of Evaluation: 08/02/18 Time of Evaluation: 11:29 - Subjective Subjective: GI Fellow PGY4 No acute overnight events. Low fever. Abx changed to zosyn. Abdominal pain is improved today, 04/27. She is tolerating clear liquid diet. Denies nausea, vomiting. She is passing flatus. No BM. 5pt ROS neg except for above. Objective - Vital Signs/Intake and Output Vital Signs (last 24 hours): Temp Pulse Resp BP Pulse Ox 99.3 F 70 20 127/59 L 97 08/02/18 06:00 08/02/18 06:00 08/02/18 06:00 08/02/18 06:00 08/02/18 06:00 - Medications Medications: Current Medications Famotidine (Pepcid) 20 mg IVP DAILY [facility] Last Admin: 08/02/18 10:24 Dose: 20 mg Sodium Chloride (Sodium Chloride 0.9%) 1,000 mls @ 100 mls/hr IV .Q10H [facility] Last Admin: 07/31/18 23:43 Dose: 100 mls/hr Piperacillin Sod/Tazobactam Sod (Zosyn 3.375 In Ns 100ml) 100 mls @ 200 mls/hr IVPB Q6 JUVE PRN Reason: Protocol Stop: 08/08/18 18:01 Last Admin: 08/02/18 06:16 Dose: 200 mls/hr Morphine Sulfate (Morphine) 2 mg IVP Q6H PRN PRN Reason: Pain, severe (8-10) Last Admin: 08/02/18 10:23 Dose: 2 mg Ondansetron HCl (Zofran Inj) 4 mg IVP Q6H PRN PRN Reason: Nausea/Vomiting - Labs Labs: 08/02/18 07:00 08/02/18 07:00 - Constitutional Appears: Non-toxic, No Acute Distress - Head Exam Head Exam: NORMAL INSPECTION - Eye Exam Eye Exam: Normal appearance - ENT Exam ENT Exam: Mucous Membranes Moist - Neck Exam Neck Exam: Normal Inspection - Respiratory Exam Respiratory Exam: Clear to Ausculation Bilateral, NORMAL BREATHING PATTERN - Cardiovascular Exam Cardiovascular Exam: REGULAR RHYTHM, +S1, +S2 - GI/Abdominal Exam GI & Abdominal Exam: Soft, Tenderness, Normal Bowel Sounds - Extremities Exam Extremities Exam: Normal Inspection Additional comments: previous fasciotomy - Neurological Exam Neurological Exam: Alert, Awake, Oriented x3 - Psychiatric Exam Psychiatric exam: Normal Affect, Normal Mood - Skin Skin Exam: Dry, Normal Color Assessment and Plan - Assessment and Plan (Free Text) Assessment: 27F with recurrent diverticulitis #Acute diverticulitis, recurrent, uncomplicated #Elevated T. Bili PLAN: -Continue Zosyn per ID -Okay to start full liquid diet, advance to low residue as tolerated. -Recommend establishing care with surgeon as this colon may need to be removed if same problem continues (2nd episode in 2 months). -Follow up with primary GI physician -CMP with direct Bili in AM <Jamal Savage V - Last Filed: 08/02/18 21:34> Objective - Vital Signs/Intake and Output Vital Signs (last 24 hours): Temp Pulse Resp BP Pulse Ox 98.3 F 73 20 115/82 97 08/02/18 14:00 08/02/18 14:00 08/02/18 14:00 08/02/18 14:00 08/02/18 14:00 Intake and Output: 08/02/18 08/03/18 18:59 06:59 Intake Total 720 Balance 720 - Medications Medications: Current Medications Famotidine (Pepcid) 20 mg IVP DAILY [facility] Last Admin: 08/02/18 10:24 Dose: 20 mg Sodium Chloride (Sodium Chloride 0.9%) 1,000 mls @ 100 mls/hr IV .Q10H [facility] Last Admin: 08/02/18 18:09 Dose: 100 mls/hr Piperacillin Sod/Tazobactam Sod (Zosyn 3.375 In Ns 100ml) 100 mls @ 200 mls/hr IVPB Q6 JUVE PRN Reason: Protocol Stop: 08/08/18 18:01 Last Admin: 08/02/18 18:13 Dose: 200 mls/hr Morphine Sulfate (Morphine) 2 mg IVP Q6H PRN PRN Reason: Pain, severe (8-10) Last Admin: 08/02/18 21:02 Dose: 2 mg Ondansetron HCl (Zofran Inj) 4 mg IVP Q6H PRN PRN Reason: Nausea/Vomiting - Labs Labs: 08/02/18 07:00 08/02/18 07:00 Attending/Attestation - Attestation I have personally seen and examined this patient.: Yes I have fully participated in the care of the patient.: Yes I have reviewed all pertinent clinical information, including history, physical exam and plan: Yes Notes (Text): This is an addendum to GI progress report dictated by the GI Fellow.The patient was seen and examined earlier. Medical records, lab studies, imagings were reviewed. Last 24 hours events reviewed. Agreed with the above treatment plan as outlined in GI Fellow 's notes with the addition of the following Patient still has some pain LLQ physical examination some tenderness in epigastric LLQ area Continue the antibiotics liquid diet discussed with patient and patient family patient does have mildly elevated total billiruban Would request direct billiruban follow up LFT reticulocyte count Sonogram ultrasound 08/02/18 21:29
--- NOTE | 2018-08-02 14:40 | PN ---
DATE: 08/02/2018 SUBJECTIVE: The patient is in bed, in no acute distress. PHYSICAL EXAMINATION: VITAL SIGNS: On exam, the patient's temperature is 99, T-max is 100.7, blood pressure is 111/70, respiratory rate of 20, heart rate of 80. HEENT: Examination of HEENT is unremarkable. NECK: Supple. LUNGS: Have decreased breath sounds. HEART: Normal S1, S2. ABDOMEN: Soft. Laboratory examination reveals a white count of 11,400, hemoglobin of 12. ASSESSMENT AND PLAN: A 27-year-old female with history of diverticulitis, morbid obesity, body mass index of 41 and history of lower leg fasciotomy and with acute descending colon diverticulitis and the patient has history of diverticulitis. Currently on Zosyn, appears to be tolerating her diet well. Did have a low grade temperature yesterday of 100.7. Still mild leukocytosis. The patient had negative human immunodeficiency virus test in May. Nestor Corrales MD
--- NOTE | 2018-08-02 14:42 | CP.PCM.CON ---
<Janene Mares - Last Filed: 08/02/18 15:51> History of Present Illness - History of Present Illness History of Present Illness: General Surgery Dr. Daley 27 y/o F w/ PMHx of diverticulitis presented to the ED on 08/01 c/o abd pain. Pain similar to previous episode of diverticulitis. First episode was 6yrs ago. 2nd episode was in May. Pt was seen here in [place] and treated w/ IV abx for diverticulitis w/ micro-perf. Pt states current pain started in (L) mid-abd on . Pain constant w/ intermittent cramping pain through mid-abd and suprapubically. Pain does not radiate. Pt admits to nausea at onset which has since resolved. Pt also reports concurrent constipation. Pt denied F/C, vomiting , diarrhea, dysuria, urgency, frequency. CT scan performed in ED found recurrent descending colon diverticulitis. Pt started on Cipro/flagyl, changed to Zosyn by ID. Surgery consulted at request of GI due to recurrent diverticulitis at young age. Pt w/ low grade fever overnight 100.7. Pt denies N/V, D/C. pain much improved and controlled w/ pain meds. (+)BM/Flatus. tolerating FLD. PMHx: see above Meds: reviewed in chart NKDA PSHx: B/L LE fasciotomy SHx: marijuana use; denies EtOH and tobacco use FHx: unknown - adopted Review of Systems - Review of Systems All systems: reviewed and no additional remarkable complaints except (see HPI) Past Patient History - Infectious Disease Hx of Infectious Diseases: None - Past Medical History & Family History Past Medical History?: No - Past Social History Smoking Status: Never Smoked - CARDIAC Hx Cardiac Disorders: No - PULMONARY Hx Respiratory Disorders: No - NEUROLOGICAL Hx Neurological Disorder: No - HEENT Hx HEENT Problems: No - RENAL Hx Chronic Kidney Disease: No - ENDOCRINE/METABOLIC Hx Endocrine Disorders: No - HEMATOLOGICAL/ONCOLOGICAL Hx Blood Disorders: No - INTEGUMENTARY Hx Dermatological Problems: No - MUSCULOSKELETAL/RHEUMATOLOGICAL Hx Musculoskeletal Disorders: No - GASTROINTESTINAL Hx Diverticulitis: Yes - GENITOURINARY/GYNECOLOGICAL Hx Genitourinary Disorders: No - PSYCHIATRIC Hx Psychophysiologic Disorder: No Hx Substance Use: Yes - SURGICAL HISTORY Other/Comment: b/l lower leg fasciotomy Meds Allergies/Adverse Reactions: Allergies Allergy/AdvReac Type Severity Reaction Status Date / Time No Known Allergies Allergy Verified 08/01/18 02:44 - Medications Medications: Current Medications Famotidine (Pepcid) 20 mg IVP DAILY [facility] Last Admin: 08/02/18 10:24 Dose: 20 mg Sodium Chloride (Sodium Chloride 0.9%) 1,000 mls @ 100 mls/hr IV .Q10H [facility] Last Admin: 07/31/18 23:43 Dose: 100 mls/hr Piperacillin Sod/Tazobactam Sod (Zosyn 3.375 In Ns 100ml) 100 mls @ 200 mls/hr IVPB Q6 JUVE PRN Reason: Protocol Stop: 08/08/18 18:01 Last Admin: 08/02/18 12:00 Dose: 200 mls/hr Morphine Sulfate (Morphine) 2 mg IVP Q6H PRN PRN Reason: Pain, severe (8-10) Last Admin: 08/02/18 14:02 Dose: 2 mg Ondansetron HCl (Zofran Inj) 4 mg IVP Q6H PRN PRN Reason: Nausea/Vomiting Physical Exam - Constitutional Appears: Non-toxic, No Acute Distress - Head Exam Head Exam: NORMAL INSPECTION - Eye Exam Eye Exam: Normal appearance - ENT Exam ENT Exam: Mucous Membranes Moist - Respiratory Exam Respiratory Exam: NORMAL BREATHING PATTERN. absent: Accessory Muscle Use, Respiratory Distress - Cardiovascular Exam Cardiovascular Exam: absent: Bradycardia, Tachycardia - GI/Abdominal Exam GI & Abdominal Exam: Soft, Tenderness (LUQ TTP). absent: Distended (obese), Firm, Guarding, Rebound, Rigid - Extremities Exam Extremities exam: Positive for: normal inspection - Neurological Exam Neurological exam: Alert, Oriented x3 - Psychiatric Exam Psychiatric exam: Normal Affect, Normal Mood - Skin Skin Exam: Dry, Intact, Normal Color, Warm Results - Vital Signs Recent Vital Signs: Last Vital Signs Temp 99.3 F 08/02/18 06:00 Pulse 70 08/02/18 06:00 Resp 20 08/02/18 06:00 BP 127/59 L 08/02/18 06:00 Pulse Ox 97 08/02/18 06:00 - Labs Result Diagrams: 08/02/18 07:00 08/02/18 07:00 Labs: Laboratory Results - last 24 hr 08/02/18 08/02/18 07:00 07:00 WBC 11.4 H RBC 3.96 Hgb 12.8 Hct 37.8 MCV 95.5 MCH 32.3 MCHC 33.9 RDW 12.3 Plt Count 210 MPV 10.1 Sodium 139 Potassium 3.9 Chloride 107 Carbon Dioxide 24 Anion Gap 12 BUN 5 L Creatinine 0.7 Est GFR ( Amer) > 60 Est GFR (Non-Af Amer) > 60 Random Glucose 87 Calcium 8.4 Total Bilirubin 1.8 H AST 30 ALT 44 Alkaline Phosphatase 56 Total Protein 6.8 Albumin 3.8 Globulin 3.0 Albumin/Globulin Ratio 1.3 - Imaging and Cardiology CT scan - abdomen Status: Image reviewed by me, Report reviewed by me Assessment & Plan - Assessment and Plan (Free Text) Assessment: 27 y/o F w/ recurrent diverticulitis - cont IV Abx as per ID - advance diet slowly as pain improves - cont pain management - monitor bowel function - f/u GI recs; outpatient colonoscopy in 6-8weeks - encourage OOB to chair/Amb Pt discussed w/ Dr. Edi Mares DO PGY3 <Kip Daley - Last Filed: 08/03/18 14:32> Meds - Medications Medications: Current Medications Famotidine (Pepcid) 20 mg IVP DAILY [facility] Last Admin: 08/03/18 11:22 Dose: 20 mg Sodium Chloride (Sodium Chloride 0.9%) 1,000 mls @ 100 mls/hr IV .Q10H [facility] Last Admin: 08/02/18 18:09 Dose: 100 mls/hr Piperacillin Sod/Tazobactam Sod (Zosyn 3.375 In Ns 100ml) 100 mls @ 200 mls/hr IVPB Q6 JUVE PRN Reason: Protocol Stop: 08/08/18 18:01 Last Admin: 08/03/18 11:21 Dose: 200 mls/hr Morphine Sulfate (Morphine) 2 mg IVP Q6H PRN PRN Reason: Pain, severe (8-10) Last Admin: 08/03/18 11:21 Dose: 2 mg Ondansetron HCl (Zofran Inj) 4 mg IVP Q6H PRN PRN Reason: Nausea/Vomiting Results - Vital Signs Recent Vital Signs: Last Vital Signs Temp 98.5 F 08/03/18 06:00 Pulse 71 08/03/18 06:00 Resp 20 08/03/18 06:00 BP 103/67 08/03/18 06:00 Pulse Ox 95 08/03/18 06:00 - Labs Result Diagrams: 08/03/18 07:00 08/03/18 07:00 Labs: Laboratory Results - last 24 hr 08/03/18 08/03/18 07:00 07:00 WBC 10.8 RBC 3.92 Hgb 12.4 Hct 37.6 MCV 95.9 MCH 31.6 MCHC 33.0 RDW 12.2 Plt Count 225 MPV 10.3 Gran % 71.9 H Lymph % (Auto) 17.7 L Curry % (Auto) 9.4 H Eos % (Auto) 0.8 L Baso % (Auto) 0.2 Gran # 7.73 H Lymph # (Auto) 1.9 Curry # (Auto) 1.0 H Eos # (Auto) 0.1 Baso # (Auto) 0.02 Sodium 140 Potassium 4.0 Chloride 107 Carbon Dioxide 25 Anion Gap 12 BUN 5 L Creatinine 0.7 Est GFR ( Amer) > 60 Est GFR (Non-Af Amer) > 60 Random Glucose 81 Calcium 8.6 Phosphorus 3.2 Magnesium 1.9 Total Bilirubin 1.1 Direct Bilirubin 0.1 AST 25 ALT 37 Alkaline Phosphatase 56 Total Protein 6.7 Albumin 3.7 Globulin 3.0 Albumin/Globulin Ratio 1.2 Attending/Attestation - Attestation I have personally seen and examined this patient.: Yes I have fully participated in the care of the patient.: Yes I have reviewed all pertinent clinical information: Yes Notes (Text): .Pt was seen and examined at bedside Agree with above note and assessment Pt with lower abdominal pain and nausea Abdomen : soft, tender in lower abdomen Labs and radiology reviewed Ass: Recurrent Diverticulitis Plan : NPO,IVF GI consult IV antibiotics Plan d.w pt in detail Risk and benefit explained in detail.
[2018-08-02] MEDS: Sodium Chloride 0.9% 1,000 ML IV SCH (18:09)
[2018-08-03] MEDS: Piperacillin/Tazobact 3.375 gm 100 ML IVPB SCH ×5 (00:59→23:07)
[2018-08-03 07:57] LABS: BASO # 0.02 K/mm3 (0.0-2.0); BASO % 0.2 % (0.0-3.0); EOS # 0.1 (0.0-0.7); EOS % 0.8 % (1.5-5.0); GRAN # 7.73 (1.4-6.5); GRAN % 71.9 % (50.0-68.0); HEMOGLOBIN 12.4 g/dL (12.0-16.0); LYMPH # 1.9 (1.2-3.4); LYMPH % 17.7 % (22.0-35.0); MEAN CELL VOLUME 95.9 fl (80.0-105.0); MEAN CORPUSCULAR HEMOGLOBIN 31.6 pg (25.0-35.0); MEAN PLATELET VOLUME 10.3 fl (7.0-11.0); MONO % 9.4 % (1.0-6.0); RBC 3.92 10^6/uL (3.5-6.1); RED CELL DISTRIBUTION WIDTH 12.2 % (11.5-14.5); WHITE BLOOD COUNT 10.8 10^3/ul (4.5-11.0)
[2018-08-03 08:20] LABS: ALB/GLOB RATIO 1.2 (1.1-1.8); ALBUMIN 3.7 g/dL (3.0-4.8); ALT/SGPT 37 U/L (7-56); AST/SGOT 25 U/L (14-36); BILIRUBIN,DIRECT 0.1 mg/dL (0.0-0.4); BLOOD UREA NITROGEN 5 mg/dL (7-21); CALCIUM 8.6 mg/dL (8.4-10.5); GFR NON-AFRICAN AMERICAN > 60
--- NOTE | 2018-08-03 09:14 | CP.PCM.PN ---
<Janene Mares - Last Filed: 08/03/18 09:14> Subjective - Date & Time of Evaluation Date of Evaluation: 08/03/18 Time of Evaluation: 09:12 - Subjective Subjective: General Surgery Dr. Daley Pt S&E @bedside. No acute events overnight. Pt reports cont LLQ/LUQ abd pain, though improved. Pt reports continued intermittent abd cramping, not related to PO intake. Pt denies F/C, N/V. 1 episode loose BM this AM. tolerating FLD Objective - Vital Signs/Intake and Output Vital Signs (last 24 hours): Temp Pulse Resp BP Pulse Ox 98.5 F 71 20 103/67 95 08/03/18 06:00 08/03/18 06:00 08/03/18 06:00 08/03/18 06:00 08/03/18 06:00 Intake and Output: 08/03/18 08/03/18 06:59 18:59 Intake Total 780 Balance 780 - Medications Medications: Current Medications Famotidine (Pepcid) 20 mg IVP DAILY [facility] Last Admin: 08/02/18 10:24 Dose: 20 mg Sodium Chloride (Sodium Chloride 0.9%) 1,000 mls @ 100 mls/hr IV .Q10H [facility] Last Admin: 08/02/18 18:09 Dose: 100 mls/hr Piperacillin Sod/Tazobactam Sod (Zosyn 3.375 In Ns 100ml) 100 mls @ 200 mls/hr IVPB Q6 JUVE PRN Reason: Protocol Stop: 08/08/18 18:01 Last Admin: 08/03/18 06:08 Dose: 200 mls/hr Morphine Sulfate (Morphine) 2 mg IVP Q6H PRN PRN Reason: Pain, severe (8-10) Last Admin: 08/02/18 21:02 Dose: 2 mg Ondansetron HCl (Zofran Inj) 4 mg IVP Q6H PRN PRN Reason: Nausea/Vomiting - Labs Labs: 08/03/18 07:00 08/03/18 07:00 - Constitutional Appears: Non-toxic, No Acute Distress - Head Exam Head Exam: NORMAL INSPECTION - Eye Exam Eye Exam: Normal appearance - ENT Exam ENT Exam: Mucous Membranes Moist - Respiratory Exam Respiratory Exam: NORMAL BREATHING PATTERN. absent: Accessory Muscle Use, Respiratory Distress - Cardiovascular Exam Cardiovascular Exam: REGULAR RHYTHM. absent: Bradycardia, Tachycardia - GI/Abdominal Exam GI & Abdominal Exam: Soft, Tenderness (mild TTP LLQ/LUQ). absent: Distended ( obese), Firm, Guarding, Rigid, Rebound - Neurological Exam Neurological Exam: Alert, Awake, Oriented x3 - Psychiatric Exam Psychiatric exam: Normal Affect, Normal Mood - Skin Skin Exam: Dry, Intact, Normal Color, Warm Assessment and Plan - Assessment and Plan (Free Text) Assessment: 27 y/o F w/ recurrent descending diverticulitis - cont IV Abx as per ID - advance diet slowly as pain improves - cont pain management - monitor bowel function - f/u GI recs; outpatient colonoscopy in 6-8weeks - encourage OOB to chair/Amb - recommend elective L hemicolectomy for recurrent descending diverticulitis Pt discussed w/ Dr. Edi Mares DO PGY3 <Kip Daley - Last Filed: 08/03/18 14:39> Objective - Vital Signs/Intake and Output Vital Signs (last 24 hours): Temp Pulse Resp BP Pulse Ox 98.5 F 71 20 103/67 95 08/03/18 06:00 08/03/18 06:00 08/03/18 06:00 08/03/18 06:00 08/03/18 06:00 Intake and Output: 08/03/18 08/03/18 06:59 18:59 Intake Total 780 Balance 780 - Medications Medications: Current Medications Famotidine (Pepcid) 20 mg IVP DAILY [facility] Last Admin: 08/03/18 11:22 Dose: 20 mg Sodium Chloride (Sodium Chloride 0.9%) 1,000 mls @ 100 mls/hr IV .Q10H [facility] Last Admin: 08/02/18 18:09 Dose: 100 mls/hr Piperacillin Sod/Tazobactam Sod (Zosyn 3.375 In Ns 100ml) 100 mls @ 200 mls/hr IVPB Q6 JUVE PRN Reason: Protocol Stop: 08/08/18 18:01 Last Admin: 08/03/18 11:21 Dose: 200 mls/hr Morphine Sulfate (Morphine) 2 mg IVP Q6H PRN PRN Reason: Pain, severe (8-10) Last Admin: 08/03/18 11:21 Dose: 2 mg Ondansetron HCl (Zofran Inj) 4 mg IVP Q6H PRN PRN Reason: Nausea/Vomiting - Labs Labs: 08/03/18 07:00 08/03/18 07:00 Attending/Attestation - Attestation I have fully participated in the care of the patient.: Yes I have reviewed all pertinent clinical information, including history, physical exam and plan: Yes Notes (Text): Pt is improving clinically c/w current mx IV antibiotics Advance diet as tolerated Plan d.w pt in detail
[2018-08-03] MEDS: Sodium Chloride 0.9% 1,000 ML IV SCH ×2 (11:13→12:12)
[2018-08-03] MEDS: Morphine 2 mg/ml ISec IVP PRN ×2 (11:21→23:07)
--- NOTE | 2018-08-03 11:30 | CP.PCM.PN ---
<Masha Stewart - Last Filed: 08/03/18 13:47> Subjective - Date & Time of Evaluation Date of Evaluation: 08/03/18 Time of Evaluation: 10:10 - Subjective Subjective: PGY-1 Masha Stewart D.O. Medicine progress note for Dr. Hardin's service: Patient was seen and examined this morning. No over night events reported. Patient is afebrile. Patient is still having abdominal pain; it has improved to a severity of 5/10. She developed diarrhea last night. She has had a total of 4 episodes. She is able to tolerate clear liquids by mouth- denies nausea and vomiting. Objective - Vital Signs/Intake and Output Vital Signs (last 24 hours): Temp Pulse Resp BP Pulse Ox 98.5 F 71 20 103/67 95 08/03/18 06:00 08/03/18 06:00 08/03/18 06:00 08/03/18 06:00 08/03/18 06:00 Intake and Output: 08/03/18 08/03/18 06:59 18:59 Intake Total 780 Balance 780 - Medications Medications: Current Medications Famotidine (Pepcid) 20 mg IVP DAILY [facility] Last Admin: 08/02/18 10:24 Dose: 20 mg Sodium Chloride (Sodium Chloride 0.9%) 1,000 mls @ 100 mls/hr IV .Q10H [facility] Last Admin: 08/02/18 18:09 Dose: 100 mls/hr Piperacillin Sod/Tazobactam Sod (Zosyn 3.375 In Ns 100ml) 100 mls @ 200 mls/hr IVPB Q6 JUVE PRN Reason: Protocol Stop: 08/08/18 18:01 Last Admin: 08/03/18 06:08 Dose: 200 mls/hr Morphine Sulfate (Morphine) 2 mg IVP Q6H PRN PRN Reason: Pain, severe (8-10) Last Admin: 08/02/18 21:02 Dose: 2 mg Ondansetron HCl (Zofran Inj) 4 mg IVP Q6H PRN PRN Reason: Nausea/Vomiting - Labs Labs: 08/03/18 07:00 08/03/18 07:00 - Constitutional Appears: Non-toxic, No Acute Distress - Head Exam Head Exam: ATRAUMATIC, NORMAL INSPECTION, NORMOCEPHALIC - Eye Exam Eye Exam: EOMI, Normal appearance, PERRL - ENT Exam ENT Exam: Mucous Membranes Moist, Normal Exam - Neck Exam Neck Exam: Normal Inspection - Respiratory Exam Respiratory Exam: Clear to Ausculation Bilateral, NORMAL BREATHING PATTERN - Cardiovascular Exam Cardiovascular Exam: REGULAR RHYTHM, +S1, +S2 - GI/Abdominal Exam GI & Abdominal Exam: Soft, Tenderness (mild-moderate LLQ), Normal Bowel Sounds - Rectal Exam Rectal Exam: Deferred - Extremities Exam Extremities Exam: Full ROM, Normal Inspection. absent: Pedal Edema - Back Exam Back Exam: NORMAL INSPECTION - Neurological Exam Neurological Exam: Alert, Awake, CN II-XII Intact, Oriented x3 Neuro motor strength exam: Left Upper Extremity: 5, Right Upper Extremity: 5, Left Lower Extremity: 5, Right Lower Extremity: 5 - Psychiatric Exam Psychiatric exam: Normal Affect, Normal Mood - Skin Skin Exam: Dry, Intact, Normal Color, Warm Assessment and Plan - Assessment and Plan (Free Text) Assessment: 27 year old female with PMH of diverticultis x3 (admission for diverticulitis ) who presented with worsening abdominal pain over the past 2 days, associated with nausea. Abdominal CT shows acute diverticulitis of descending colon. Plan: Acute diverticulitis- h/o 2 previous episodes - Abdominal CT: acute diverticulitis of descending colon. - Leukocytosis resolved (11.5->10.8) - Febrile 08/01 100.7 - Blood Cx no growth >48hrs - HIV negative in 05/2018 - Morphine 2 mg IVP Q6H PRN - Zofran 2 mg IVP Q6H PRN - NS IVF at 100 mL/hr - Discontinue Metronidazole 500 mg IV Q8H - Discontinue Ciprofloxacin 400 mg IV Q12H - Zosyn 3.375 mg IV q6hrs x7 days (started 08/01) - F/u C. diff - ID consulted- Zosyn x7 days - GI consulted- outpatient colonoscopy in 6-8 weeks, stool softeners as outpatient - Gen surg consulted- encourage OOB to chair, elective colectomy as outpatient Transaminitis, resolved - Bilirubin elevated x1 (1.8)- now resolved - GI consulted IVF: NS @ 100 Diet: full liquids GI ppx: Pepcid 20 mg IV daily VTE ppx: SCDs Code status: full code Case discussed with attending, Dr. Hardin. <Sandra Hardin R - Last Filed: 08/03/18 17:23> Objective - Vital Signs/Intake and Output Vital Signs (last 24 hours): Temp Pulse Resp BP Pulse Ox 98.3 F 65 18 120/81 96 08/03/18 14:00 08/03/18 14:00 08/03/18 14:00 08/03/18 14:00 08/03/18 14:00 Intake and Output: 08/03/18 08/03/18 06:59 18:59 Intake Total 780 600 Balance 780 600 - Medications Medications: Current Medications Famotidine (Pepcid) 20 mg IVP DAILY [facility] Last Admin: 08/03/18 11:22 Dose: 20 mg Sodium Chloride (Sodium Chloride 0.9%) 1,000 mls @ 100 mls/hr IV .Q10H [facility] Last Admin: 08/02/18 18:09 Dose: 100 mls/hr Piperacillin Sod/Tazobactam Sod (Zosyn 3.375 In Ns 100ml) 100 mls @ 200 mls/hr IVPB Q6 JUVE PRN Reason: Protocol Stop: 08/08/18 18:01 Last Admin: 08/03/18 11:21 Dose: 200 mls/hr Morphine Sulfate (Morphine) 2 mg IVP Q6H PRN PRN Reason: Pain, severe (8-10) Last Admin: 08/03/18 11:21 Dose: 2 mg Ondansetron HCl (Zofran Inj) 4 mg IVP Q6H PRN PRN Reason: Nausea/Vomiting - Labs Labs: 08/03/18 07:00 08/03/18 07:00 Attending/Attestation - Attestation I have personally seen and examined this patient.: Yes I have fully participated in the care of the patient.: Yes I have reviewed all pertinent clinical information, including history, physical exam and plan: Yes Notes (Text): Patient seen and examined by me at 11:40AM with resident. Case including HPI, physical exam, and assessment and plan discussed with resident. Agree with above with following additions/corrections. Patient is a 27-year-old female with past medical history significant for diverticulitis the presented to the emergency room with left lower quadrant abdominal pain. Patient states that she is still having pain today. Pain is in lower abdomen and is 5/10. Pain medications are helping. Patient states she had 2 episodes of diarrhea today. Patient is tolerating liquid diet. She denies any nausea or vomiting. No chest pain or shortness of breath. No headaches or dizziness. No fevers or chills. No dysuria. Physical exam: General: Awake and alert lying in bed in acute distress. HEENT: Normocephalic atraumatic. Pupils equal reactive. No scleral icterus. Oropharynx is pink and moist. Neck is supple. Cardiovascular: Normal rhythm. Normal S1, S2. No murmurs, rubs, or gallops appreciated Pulmonary: Normal respiratory effort. No rhonchi, rales or wheezing appreciated. Gastrointestinal: Soft, nondistended. Positive lower abdominal tenderness. Positive bowel sounds all 4 quadrants, no guarding. Obese abdomen. Unable to examine for any organomegaly secondary to body habitus. Musculoskeletal: Normal range of motion all extremities. No calf tenderness. No edema appreciated. No CVA tenderness. Central nervous system: AAO 3. CN2-12 grossly intact. Dermatologic: Skin warm and dry Assessment and plan: Patient is a 27-year-old female with past medical history significant for diverticulitis the presented to the emergency room with left lower quadrant abdominal pain. 1. Acute diverticulitis. CT abdomen and pelvis per radiologist shows colonic diverticulosis and findings suggestive of acute diverticulitis at the proximal descending colon, findings similar to previous study dated 06/05/2018. GI following, recommendations appreciated. ID following, recommendations appreciated. Continue Zosyn. Patient did have one episode of low-grade temp, now resolved. Leukocytosis resolved. Continue with liquid diet. Continue with pain management. Monitor for fevers. Per surgery, patient to follow up outpatient for possible hemicolectomy. 2. Leukocytosis. Secondary to #1. Resolved. Continue with Zosyn. Continue to monitor. 3. Transaminitis. Resolved. Continue monitor. 4. GI/DVT prophylaxis. Pepcid and ambulation. Case discussed in detail with the patient regarding current diagnosis and treatment plan.
--- NOTE | 2018-08-03 12:30 | CP.PCM.PN ---
<Jose F Dumas - Last Filed: 08/03/18 12:25> Subjective - Date & Time of Evaluation Date of Evaluation: 08/03/18 Time of Evaluation: 12:25 - Subjective Subjective: GI Fellow PGY4, Patient does not appear to be in worse pain today compared to yesterday. She is standing up smiling, walking around. She does have tenderness with deep palpation. There was one episode of non-bloody diarrhea w/o fever. Objective - Vital Signs/Intake and Output Vital Signs (last 24 hours): Temp Pulse Resp BP Pulse Ox 98.5 F 71 20 103/67 95 08/03/18 06:00 08/03/18 06:00 08/03/18 06:00 08/03/18 06:00 08/03/18 06:00 Intake and Output: 08/03/18 08/03/18 06:59 18:59 Intake Total 780 Balance 780 - Medications Medications: Current Medications Famotidine (Pepcid) 20 mg IVP DAILY [facility] Last Admin: 08/03/18 11:22 Dose: 20 mg Sodium Chloride (Sodium Chloride 0.9%) 1,000 mls @ 100 mls/hr IV .Q10H JUVE Last Admin: 08/02/18 18:09 Dose: 100 mls/hr Piperacillin Sod/Tazobactam Sod (Zosyn 3.375 In Ns 100ml) 100 mls @ 200 mls/hr IVPB Q6 JUVE PRN Reason: Protocol Stop: 08/08/18 18:01 Last Admin: 08/03/18 11:21 Dose: 200 mls/hr Morphine Sulfate (Morphine) 2 mg IVP Q6H PRN PRN Reason: Pain, severe (8-10) Last Admin: 08/03/18 11:21 Dose: 2 mg Ondansetron HCl (Zofran Inj) 4 mg IVP Q6H PRN PRN Reason: Nausea/Vomiting - Labs Labs: 08/03/18 07:00 08/03/18 07:00 - Constitutional Appears: Non-toxic, No Acute Distress, Chronically Ill - Head Exam Head Exam: NORMAL INSPECTION - Eye Exam Eye Exam: Normal appearance - ENT Exam ENT Exam: Mucous Membranes Moist - Respiratory Exam Respiratory Exam: Clear to Ausculation Bilateral, NORMAL BREATHING PATTERN - Cardiovascular Exam Cardiovascular Exam: REGULAR RHYTHM, +S1, +S2 - GI/Abdominal Exam GI & Abdominal Exam: Soft, Tenderness, Normal Bowel Sounds - Extremities Exam Extremities Exam: absent: Normal Inspection - Neurological Exam Neurological Exam: Alert, Awake, Oriented x3 - Psychiatric Exam Psychiatric exam: Normal Affect, Normal Mood - Skin Skin Exam: Dry, Normal Color Assessment and Plan - Assessment and Plan (Free Text) Assessment: 27F with recurrent diverticulitis #Acute diverticulitis, recurrent, uncomplicated #Elevated T. Bili - resolved PLAN: -Continue Zosyn per ID -Continue full liquid diet -Patient may need elective surgery if diverticulitis continues to return while on recommended diet. Apparently she is seeing a surgeon in [place] -Follow up with primary GI physician -She will need to avoid constipation as outpt. Recommend miralax, stool softeners as outpt. <Janette,Kovil V - Last Filed: 08/04/18 00:26> Objective - Vital Signs/Intake and Output Vital Signs (last 24 hours): Temp Pulse Resp BP Pulse Ox 98.3 F 65 18 120/81 96 08/03/18 14:00 08/03/18 14:00 08/03/18 14:00 08/03/18 14:00 08/03/18 14:00 Intake and Output: 08/03/18 08/04/18 18:59 06:59 Intake Total 600 500 Balance 600 500 - Medications Medications: Current Medications Famotidine (Pepcid) 20 mg IVP DAILY [facility] Last Admin: 08/03/18 11:22 Dose: 20 mg Sodium Chloride (Sodium Chloride 0.9%) 1,000 mls @ 100 mls/hr IV .Q10H [facility] Last Admin: 08/03/18 12:12 Dose: 100 mls/hr Piperacillin Sod/Tazobactam Sod (Zosyn 3.375 In Ns 100ml) 100 mls @ 200 mls/hr IVPB Q6 JUVE PRN Reason: Protocol Stop: 08/08/18 18:01 Last Admin: 08/03/18 23:07 Dose: 200 mls/hr Morphine Sulfate (Morphine) 2 mg IVP Q6H PRN PRN Reason: Pain, severe (8-10) Last Admin: 08/03/18 23:07 Dose: 2 mg Ondansetron HCl (Zofran Inj) 4 mg IVP Q6H PRN PRN Reason: Nausea/Vomiting - Labs Labs: 08/03/18 07:00 08/03/18 07:00 Attending/Attestation - Attestation I have personally seen and examined this patient.: Yes I have fully participated in the care of the patient.: Yes I have reviewed all pertinent clinical information, including history, physical exam and plan: Yes Notes (Text): This is an addendum to GI progress report dictated by the GI Fellow.The patient was seen and examined earlier. Medical records, lab studies, imagings were reviewed. Last 24 hours events reviewed. Agreed with the above treatment plan as outlined in GI Fellow 's notes with the addition of the following Still complaining of abdominal pain On examination patient has tenderness in LLQ and no guardy Request repeat CT at time of examination will review and discuss with doctor 08/04/18 00:25
--- NOTE | 2018-08-03 15:38 | PN ---
DATE: 08/03/2018 SUBJECTIVE: The patient is seen earlier in 574, bed 2. No fevers, no chills, no nausea. PHYSICAL EXAMINATION: VITAL SIGNS: On exam, temperature is 99, blood pressure is 130/60, respiratory rate of 16. HEENT: Examination of HEENT is unremarkable. NECK: Supple. LUNGS: Have decreased breath sounds. HEART: Normal S1, S2. ABDOMEN: Soft. LABORATORY DATA: Laboratory examination reveals the white count is 10,800, hemoglobin is 12. Chemistries are noted. Urinalysis is reviewed. Microbiology reveals the blood cultures are no growth. Review of orders reveals the patient to be on Zosyn. ASSESSMENT AND PLAN: A 27-year-old female with diverticulitis, morbid obesity, BMI of 41, history of lower leg fasciotomy and acute descending colon diverticulitis. Currently, on Zosyn, improving. We will continue present course for now. Nestor Corrales MD
[2018-08-04] MEDS: Sodium Chloride 0.9% 1,000 ML IV SCH (06:17)
[2018-08-04] MEDS: Piperacillin/Tazobact 3.375 gm 100 ML IVPB SCH ×2 (06:17→11:12)
[2018-08-04 07:26] LABS: BASO # 0.02 K/mm3 (0.0-2.0); BASO % 0.3 % (0.0-3.0); EOS # 0.2 (0.0-0.7); EOS % 2.2 % (1.5-5.0); GRAN # 4.31 (1.4-6.5); GRAN % 61.8 % (50.0-68.0); HEMOGLOBIN 12.5 g/dL (12.0-16.0); LYMPH # 1.9 (1.2-3.4); LYMPH % 27.4 % (22.0-35.0); MEAN CELL VOLUME 94.9 fl (80.0-105.0); MEAN CORPUSCULAR HEMOGLOBIN 31.8 pg (25.0-35.0); MEAN CORPUSCULAR HGB CONC 33.5 g/dl (31.0-37.0); MONO # 0.6 (0.1-0.6); MONO % 8.3 % (1.0-6.0); RBC 3.93 10^6/uL (3.5-6.1)
[2018-08-04 08:12] LABS: ALB/GLOB RATIO 1.2 (1.1-1.8); ALBUMIN 3.8 g/dL (3.0-4.8); ALT/SGPT 34 U/L (7-56); AST/SGOT 24 U/L (14-36); BLOOD UREA NITROGEN 7 mg/dL (7-21); CALCIUM 8.6 mg/dL (8.4-10.5); GFR NON-AFRICAN AMERICAN > 60
--- NOTE | 2018-08-04 08:24 | CP.PCM.PN ---
<Janene Mares - Last Filed: 08/04/18 08:21> Subjective - Date & Time of Evaluation Date of Evaluation: 08/04/18 Time of Evaluation: 07:00 - Subjective Subjective: General Surgery Dr. Daley Pt S&E @bedside. No acute events overnight. pt has no complaints. pain much improved. denies F/C, N/V, D/C. tolerating FLD. (+)BM/Flatus Objective - Vital Signs/Intake and Output Vital Signs (last 24 hours): Temp Pulse Resp BP Pulse Ox 98.3 F 65 18 120/81 96 08/03/18 14:00 08/03/18 14:00 08/03/18 14:00 08/03/18 14:00 08/03/18 14:00 Intake and Output: 08/04/18 08/04/18 06:59 18:59 Intake Total 620 Balance 620 - Medications Medications: Current Medications Famotidine (Pepcid) 20 mg IVP DAILY [facility] Last Admin: 08/03/18 11:22 Dose: 20 mg Sodium Chloride (Sodium Chloride 0.9%) 1,000 mls @ 100 mls/hr IV .Q10H [facility] Last Admin: 08/04/18 06:17 Dose: 100 mls/hr Piperacillin Sod/Tazobactam Sod (Zosyn 3.375 In Ns 100ml) 100 mls @ 200 mls/hr IVPB Q6 JUVE PRN Reason: Protocol Stop: 08/08/18 18:01 Last Admin: 08/04/18 06:17 Dose: 200 mls/hr Morphine Sulfate (Morphine) 2 mg IVP Q6H PRN PRN Reason: Pain, severe (8-10) Last Admin: 08/03/18 23:07 Dose: 2 mg Ondansetron HCl (Zofran Inj) 4 mg IVP Q6H PRN PRN Reason: Nausea/Vomiting - Labs Labs: 08/04/18 07:00 08/04/18 07:00 - Constitutional Appears: Non-toxic, No Acute Distress - Head Exam Head Exam: NORMAL INSPECTION - Eye Exam Eye Exam: Normal appearance - ENT Exam ENT Exam: Mucous Membranes Moist - Respiratory Exam Respiratory Exam: NORMAL BREATHING PATTERN. absent: Accessory Muscle Use, Respiratory Distress - Cardiovascular Exam Cardiovascular Exam: REGULAR RHYTHM. absent: Bradycardia, Tachycardia - GI/Abdominal Exam GI & Abdominal Exam: Soft. absent: Distended, Firm, Guarding, Tenderness, Rebound - Extremities Exam Extremities Exam: Normal Inspection - Neurological Exam Neurological Exam: Alert, Awake, Oriented x3 - Psychiatric Exam Psychiatric exam: Normal Affect, Normal Mood - Skin Skin Exam: Dry, Intact, Normal Color, Warm Assessment and Plan - Assessment and Plan (Free Text) Assessment: 27 y/o F w/ recurrent descending colon diverticulitis - ADAT - cont IV Abx - f/u GI recs - cont medical management - outpatient surgery for elective L hemicolectomy - encourage OOB to chair/Amb Pt discussed w/ Dr. Edi Mares DO PGY3 <Kip Daley - Last Filed: 08/05/18 17:35> Objective - Vital Signs/Intake and Output Vital Signs (last 24 hours): Temp Pulse Resp BP Pulse Ox 97.7 F 64 18 109/65 97 08/04/18 14:00 08/04/18 14:00 08/04/18 14:00 08/04/18 14:00 08/04/18 14:00 - Labs Labs: 08/04/18 07:00 08/04/18 07:00 Attending/Attestation - Attestation I have personally seen and examined this patient.: Yes I have fully participated in the care of the patient.: Yes I have reviewed all pertinent clinical information, including history, physical exam and plan: Yes Notes (Text): Pt was seen and examined at bedside Agree with above note and assessment Pt is improving clinically Can be DC home Po antibiotics f.u in office as out pt Plan d.w pt in detail Risk and benefit explained in detail.
--- NOTE | 2018-08-04 14:52 | CP.PCM.DIS ---
<Masha Stewart - Last Filed: 08/04/18 18:03> Provider - Provider Date of Admission: 08/01/18 03:01 Attending physician: Sandra Hardin DO Consults: GI, ID, surgery Time Spent in preparation of Discharge (in minutes): 45 Diagnosis - Discharge Diagnosis (1) Acute diverticulitis Status: Acute Priority: High Hospital Course - Lab Results Lab Results: Micro Results 08/04/18 11:39 Stool C. difficile Antigen & Toxin A,B (M - Final 08/01/18 13:10 Blood-Venous Blood Culture - Preliminary NO GROWTH AFTER 3 DAYS 08/01/18 12:50 Blood-Venous Blood Culture - Preliminary NO GROWTH AFTER 3 DAYS Most Recent Lab Values WBC 7.0 10^3/ul (4.5-11.0) D 08/04/18 07:00 RBC 3.93 10^6/uL (3.5-6.1) 08/04/18 07:00 Hgb 12.5 g/dL (12.0-16.0) 08/04/18 07:00 Hct 37.3 % (36.0-48.0) 08/04/18 07:00 MCV 94.9 fl (80.0-105.0) 08/04/18 07:00 MCH 31.8 pg (25.0-35.0) 08/04/18 07:00 MCHC 33.5 g/dl (31.0-37.0) 08/04/18 07:00 RDW 12.0 % (11.5-14.5) 08/04/18 07:00 Plt Count 262 10^3/uL (120.0-450.0) 08/04/18 07:00 MPV 10.0 fl (7.0-11.0) 08/04/18 07:00 Gran % 61.8 % (50.0-68.0) 08/04/18 07:00 Lymph % (Auto) 27.4 % (22.0-35.0) 08/04/18 07:00 [place] % (Auto) 8.3 % (1.0-6.0) H 08/04/18 07:00 Eos % (Auto) 2.2 % (1.5-5.0) 08/04/18 07:00 Baso % (Auto) 0.3 % (0.0-3.0) 08/04/18 07:00 Gran # 4.31 (1.4-6.5) 08/04/18 07:00 Lymph # (Auto) 1.9 (1.2-3.4) 08/04/18 07:00 [place] # (Auto) 0.6 (0.1-0.6) 08/04/18 07:00 Eos # (Auto) 0.2 (0.0-0.7) 08/04/18 07:00 Baso # (Auto) 0.02 K/mm3 (0.0-2.0) 08/04/18 07:00 Sodium 140 mmol/L (132-148) 08/04/18 07:00 Potassium 3.9 mmol/L (3.6-5.0) 08/04/18 07:00 Chloride 107 mmol/L (98-107) 08/04/18 07:00 Carbon Dioxide 24 mmol/L (21-33) 08/04/18 07:00 Anion Gap 14 (10-20) 08/04/18 07:00 BUN 7 mg/dL (7-21) 08/04/18 07:00 Creatinine 0.7 mg/dl (0.7-1.2) 08/04/18 07:00 Est GFR ( Amer) > 60 08/04/18 07:00 Est GFR (Non-Af Amer) > 60 08/04/18 07:00 Random Glucose 78 mg/dL (70-110) 08/04/18 07:00 Calcium 8.6 mg/dL (8.4-10.5) 08/04/18 07:00 Phosphorus 4.0 mg/dL (2.5-4.5) 08/04/18 07:00 Magnesium 2.0 mg/dL (1.7-2.2) 08/04/18 07:00 Total Bilirubin 0.6 mg/dL (0.2-1.3) 08/04/18 07:00 Direct Bilirubin 0.1 mg/dL (0.0-0.4) 08/03/18 07:00 AST 24 U/L (14-36) 08/04/18 07:00 ALT 34 U/L (7-56) 08/04/18 07:00 Alkaline Phosphatase 58 U/L (38-126) 08/04/18 07:00 Total Protein 6.9 g/dL (5.8-8.3) 08/04/18 07:00 Albumin 3.8 g/dL (3.0-4.8) 08/04/18 07:00 Globulin 3.1 gm/dL 08/04/18 07:00 Albumin/Globulin Ratio 1.2 (1.1-1.8) 08/04/18 07:00 Lipase 66 U/L (23-300) 07/31/18 23:33 Urine Color Yellow (YELLOW) 07/31/18 23:33 Urine Appearance Clear (CLEAR) 07/31/18 23:33 Urine pH 6.0 (4.7-8.0) 07/31/18 23:33 Ur Specific [place] >= 1.030 (1.005-1.035) 07/31/18 23:33 Urine Protein Trace mg/dL (<30 mg/dL) H 07/31/18 23:33 Urine Glucose (UA) Negative mg/dL (NEGATIVE) 07/31/18 23:33 Urine Ketones Trace mg/dL (NEGATIVE) H 07/31/18 23:33 Urine Blood Negative (NEGATIVE) 07/31/18 23:33 Urine Nitrate Negative (NEGATIVE) 07/31/18 23:33 Urine Bilirubin Negative (NEGATIVE) 07/31/18 23:33 Urine Urobilinogen 0.2 E.U./dL (<1 E.U./dL) 07/31/18 23:33 Ur Leukocyte Esterase Negative Rut/uL (NEGATIVE) 07/31/18 23:33 Urine RBC 0 - 2 /hpf (0-2) 07/31/18 23:33 Urine WBC 1 - 3 /hpf (0-6) 07/31/18 23:33 Ur Epithelial Cells 3 - 4 /hpf (0-5) 07/31/18 23:33 Urine Bacteria Trace (NEG) 07/31/18 23:33 Urine HCG, Qual Negative (NEGATIVE) 07/31/18 23:33 - Hospital Course Hospital Course: This is a 27 year old female with PMH of diverticulitis (admission for diverticulitis 05/2018) who presented with abdominal pain for the past 2 days. Pt states that she was feeling ine after her discharge 2 months ago, but the abdominal discomfort, associated with nausea prior to arrival. Pt denies headache, visual changes, fever, chills, ches pain, sob, v/d, hematemesis, hematochezia, melena, recent new foods, vaginal complaints. Pt states her menstrual period is starting today. A 12-point ROS was reviewed and is otherwise unremarkable. 07/31/2018 Abdominal/Pelvis CT: Colonic diverticulosis and findings suggestive of acute diverticulitis at the proximal descending colon. Findings similar to the previous study dated 06/05/2018. If clinically warranted further evaluation by endoscopy following the resolution of the acute diverticulitis may be obtained. Additional findings as described above. Preliminary report was submitted by virtual Radiology. 08/01/2018 GI consulted. Pt is to continue Abx and she can start clear liquid diet, advance to low residue as tolerated. She is recommended establishing care with surgeon as this colon may need to me removed if same problem continues ( 2nd episode in 2 months). She is advised to follow up with primary Gi Physician. CMP will be ordered AM. 08/01/2018 ID consulted. Patient will be started on Zosyn and will be monitored clinically. f/u advancement of diet and further plans of GI. 08/02/2018 General Surgery consulted. Patient will continue IV Abx as per ID. She can start advance diet slowly, as pain improves. Her pain management will continue and bowel function will be monitored. f/u GI recs, outpatient colonoscopy in 6-8 weeks. Pt is encouraged out of bed to chair/ambulation. Upon discharge, patient was tolerating a regular diet without nausea or vomiting. Her diarrhea resolved. She was afebrile. She will continue oral antibiotics and follow-up with her GI tomorrow. Discharge Exam - Head Exam Head Exam: NORMAL INSPECTION - Eye Exam Eye Exam: EOMI, Normal appearance - ENT Exam ENT Exam: Mucous Membranes Moist, Normal Exam - Neck Exam Neck exam: Full Rom, Normal Inspection - Respiratory Exam Respiratory Exam: Clear to PA & Lateral, NORMAL BREATHING PATTERN, UNREMARKABLE - Cardiovascular Exam Cardiovascular Exam: REGULAR RHYTHM, +S1, +S2 - GI/Abdominal Exam GI & Abdominal Exam: Normal Bowel Sounds, Soft, Tenderness (mild- much improved) - Rectal Exam Rectal Exam: Deferred - Extremities Exam Extremities exam: normal inspection, pedal pulses present - Back Exam Back exam: NORMAL INSPECTION - Neurological Exam Neurological exam: Alert, CN II-XII Intact, Normal Gait, Oriented x3 - Psychiatric Exam Psychiatric exam: Normal Affect, Normal Mood - Skin Skin Exam: Dry, Intact, Normal Color, Warm Discharge Plan - Discharge Medications Prescriptions: Acetaminophen/Oxycodone Hydr [Oxycodone and Acetaminophen 325 mg-2.5 mg] 1 tab PO Q6 PRN #10 tab PRN Reason: Pain, Severe (8-10) Amoxicillin/Clavulanate [Augmentin 875 MG-125 MG] 1 tab PO Q12H #20 tab Lactobacillus Acidophilus [Acidophilus Lactobacilli] 1 each PO DAILY #12 capsule - Follow Up Plan Condition: IMPROVED Disposition: HOME/ ROUTINE Patient education suggested?: Yes Instructions: Low Fiber Diet, Diverticulitis (DC), Acute Pain, Adult (DC), Pneumococcal Polysaccharide Vaccine (23-Valent) Additional Instructions: 1) You are scheduled for an appointment in the [facility] on the ground floor in [facility] on 08/11/18 3:30 PM. Please be sure to attend to this visit as you have no Primary Medical Doctor. You may call the clinic and reschedule if necessary. 2) Please follow-up with your client support professional, Dr. Jacobo, tomorrow as scheduled. He may want to do a colonoscopy in 6-8 weeks. Additionally, he can help you establish care with a surgeon if desired. 3) You are being discharged with a prescription for the antibiotic Augmention, please take until pills complete. 4) Please resume any of your home medications. 5) Patient to return to the Emergency Room for any return of symptoms. Referrals: Jamal Savage MD [Medical Doctor] - Kip Daley MD [Medical Doctor] - <Natanael Yang - Last Filed: 08/05/18 15:49> Provider - Provider Date of Admission: 08/01/18 03:01 Attending physician: Sandra Hardin, DO Hospital Course - Lab Results Lab Results: Micro Results 08/01/18 13:10 Blood-Venous Blood Culture - Preliminary NO GROWTH AFTER 4 DAYS 08/01/18 12:50 Blood-Venous Blood Culture - Preliminary NO GROWTH AFTER 4 DAYS 08/04/18 11:39 Stool C. difficile Antigen & Toxin A,B (M - Final Most Recent Lab Values WBC 7.0 10^3/ul (4.5-11.0) D 08/04/18 07:00 RBC 3.93 10^6/uL (3.5-6.1) 08/04/18 07:00 Hgb 12.5 g/dL (12.0-16.0) 08/04/18 07:00 Hct 37.3 % (36.0-48.0) 08/04/18 07:00 MCV 94.9 fl (80.0-105.0) 08/04/18 07:00 MCH 31.8 pg (25.0-35.0) 08/04/18 07:00 MCHC 33.5 g/dl (31.0-37.0) 08/04/18 07:00 RDW 12.0 % (11.5-14.5) 08/04/18 07:00 Plt Count 262 10^3/uL (120.0-450.0) 08/04/18 07:00 MPV 10.0 fl (7.0-11.0) 08/04/18 07:00 Gran % 61.8 % (50.0-68.0) 08/04/18 07:00 Lymph % (Auto) 27.4 % (22.0-35.0) 08/04/18 07:00 [place] % (Auto) 8.3 % (1.0-6.0) H 08/04/18 07:00 Eos % (Auto) 2.2 % (1.5-5.0) 08/04/18 07:00 Baso % (Auto) 0.3 % (0.0-3.0) 08/04/18 07:00 Gran # 4.31 (1.4-6.5) 08/04/18 07:00 Lymph # (Auto) 1.9 (1.2-3.4) 08/04/18 07:00 [place] # (Auto) 0.6 (0.1-0.6) 08/04/18 07:00 Eos # (Auto) 0.2 (0.0-0.7) 08/04/18 07:00 Baso # (Auto) 0.02 K/mm3 (0.0-2.0) 08/04/18 07:00 Sodium 140 mmol/L (132-148) 08/04/18 07:00 Potassium 3.9 mmol/L (3.6-5.0) 08/04/18 07:00 Chloride 107 mmol/L (98-107) 08/04/18 07:00 Carbon Dioxide 24 mmol/L (21-33) 08/04/18 07:00 Anion Gap 14 (10-20) 08/04/18 07:00 BUN 7 mg/dL (7-21) 08/04/18 07:00 Creatinine 0.7 mg/dl (0.7-1.2) 08/04/18 07:00 Est GFR ( Amer) > 60 08/04/18 07:00 Est GFR (Non-Af Amer) > 60 08/04/18 07:00 Random Glucose 78 mg/dL (70-110) 08/04/18 07:00 Calcium 8.6 mg/dL (8.4-10.5) 08/04/18 07:00 Phosphorus 4.0 mg/dL (2.5-4.5) 08/04/18 07:00 Magnesium 2.0 mg/dL (1.7-2.2) 08/04/18 07:00 Total Bilirubin 0.6 mg/dL (0.2-1.3) 08/04/18 07:00 Direct Bilirubin 0.1 mg/dL (0.0-0.4) 08/03/18 07:00 AST 24 U/L (14-36) 08/04/18 07:00 ALT 34 U/L (7-56) 08/04/18 07:00 Alkaline Phosphatase 58 U/L (38-126) 08/04/18 07:00 Total Protein 6.9 g/dL (5.8-8.3) 08/04/18 07:00 Albumin 3.8 g/dL (3.0-4.8) 08/04/18 07:00 Globulin 3.1 gm/dL 08/04/18 07:00 Albumin/Globulin Ratio 1.2 (1.1-1.8) 08/04/18 07:00 Lipase 66 U/L (23-300) 07/31/18 23:33 Urine Color Yellow (YELLOW) 07/31/18 23:33 Urine Appearance Clear (CLEAR) 07/31/18 23:33 Urine pH 6.0 (4.7-8.0) 07/31/18 23:33 Ur Specific [place] >= 1.030 (1.005-1.035) 07/31/18 23:33 Urine Protein Trace mg/dL (<30 mg/dL) H 07/31/18 23:33 Urine Glucose (UA) Negative mg/dL (NEGATIVE) 07/31/18 23:33 Urine Ketones Trace mg/dL (NEGATIVE) H 07/31/18 23:33 Urine Blood Negative (NEGATIVE) 07/31/18 23:33 Urine Nitrate Negative (NEGATIVE) 07/31/18 23:33 Urine Bilirubin Negative (NEGATIVE) 07/31/18 23:33 Urine Urobilinogen 0.2 E.U./dL (<1 E.U./dL) 07/31/18 23:33 Ur Leukocyte Esterase Negative Rut/uL (NEGATIVE) 07/31/18 23:33 Urine RBC 0 - 2 /hpf (0-2) 07/31/18:33 Urine WBC 1 - 3 /hpf (0-6) 07/31/18:33 Ur Epithelial Cells 3 - 4 /hpf (0-5) 07/31/18 23:33 Urine Bacteria Trace (NEG) 07/31/18 23:33 Urine HCG, Qual Negative (NEGATIVE) 07/31/18 23:33 Attending/Attestation - Attestation I have personally seen and examined this patient.: Yes I have fully participated in the care of the patient.: Yes I have reviewed all pertinent clinical information, including history, physical exam and plan: Yes Notes (Text): 08/05/18 15:14 attending note; Patient seen and examined with resident. Patient is a 27-year-old female with past medical history significant for diverticulitis the presented to the emergency room with left lower quadrant abdominal pain. 1. Acute diverticulitis. CT abdomen and pelvis shows colonic diverticulosis and findings suggestive of acute diverticulitis at the proximal descending colon. treated with Zosyn.fever resolved. Leukocytosis resolved. started on clear liquid . Currently tolerating soft diet. Needs outpatient surgery follow-up. Per surgery, patient to follow up outpatient for possible hemicolectomy. patient will be discharged home today. Follow-up with [facility] clinic upon discharge. Case discussed in detail with the patient regarding current diagnosis and treatment plan.
--- NOTE | 2018-08-04 14:53 | CP.PCM.PN ---
Subjective - Date & Time of Evaluation Date of Evaluation: 08/04/18 Time of Evaluation: 14:00 - Subjective Subjective: Still with abdominal pain but a little better, no fevers, no diarrhea. Objective - Vital Signs/Intake and Output Vital Signs (last 24 hours): Temp Pulse Resp BP Pulse Ox 98.3 F 61 20 98/57 L 98 08/04/18 08:22 08/04/18 08:22 08/04/18 08:22 08/04/18 08:22 08/04/18 08:22 Intake and Output: 08/04/18 08/04/18 06:59 18:59 Intake Total 620 Balance 620 - Medications Medications: Current Medications Famotidine (Pepcid) 20 mg IVP DAILY [facility] Last Admin: 08/03/18 11:22 Dose: 20 mg Sodium Chloride (Sodium Chloride 0.9%) 1,000 mls @ 100 mls/hr IV .Q10H [facility] Last Admin: 08/04/18 06:17 Dose: 100 mls/hr Piperacillin Sod/Tazobactam Sod (Zosyn 3.375 In Ns 100ml) 100 mls @ 200 mls/hr IVPB Q6 JUVE PRN Reason: Protocol Stop: 08/08/18 18:01 Last Admin: 08/04/18 06:17 Dose: 200 mls/hr Morphine Sulfate (Morphine) 2 mg IVP Q6H PRN PRN Reason: Pain, severe (8-10) Last Admin: 08/03/18 23:07 Dose: 2 mg Ondansetron HCl (Zofran Inj) 4 mg IVP Q6H PRN PRN Reason: Nausea/Vomiting - Labs Labs: 08/04/18 07:00 08/04/18 07:00 - Constitutional Appears: Chronically Ill - Head Exam Head Exam: NORMAL INSPECTION - ENT Exam ENT Exam: Mucous Membranes Moist - Neck Exam Neck Exam: absent: Meningismus - Respiratory Exam Respiratory Exam: Decreased Breath Sounds - Cardiovascular Exam Cardiovascular Exam: +S1, +S2 - GI/Abdominal Exam GI & Abdominal Exam: Soft. absent: Tenderness Assessment and Plan - Assessment and Plan (Free Text) Plan: Assessment Acute descending colon diverticulitis in this patient history of diverticulitis , slowly improving morbid obesity with BMI 41 history of lower leg fasciotomy Plan continue Zosyn day 4 and continue to monitor clinically follow up advancement of diet and further plans of GI
[2018-08-04 16:27] VITALS: BP 109/65; PULSE 64; RESP 18; TEMP 97.7; O2SAT 97
== END 2018-08-04 17:28 | disposition home or self-care (01) | DRG 183 ==
LOC: ED 22:48 → ERH 08-01 03:01 → 5RSO 08-01 04:00
PROVIDERS: ADMIT Hospitalist; ATTEND Hospitalist
DX: K57.32 Diverticulitis of large intestine without perforation or abscess without bleeding (principal); E66.01 Morbid (severe) obesity due to excess calories; Z68.41 Body mass index [BMI] 40.0-44.9, adult; D72.829 Elevated white blood cell count, unspecified; F12.90 Cannabis use, unspecified, uncomplicated